=== PATIENT | male | born 1970 | race Caucasian/White ===

== ENCOUNTER 2016-08-30 23:16 | Emergency (ER) | payer OTHER, MEDICARE ==
[~2016-08-30] VITALS: Ht 188 cm; Wt 113.4 kg
[2016-08-30 23:16] VITALS: BP 146/84
[~2016-08-30 23:16] MED LIST: ASPI81TA13 PO; ATEN50TA2 PO; BACL10TA2 PO; DEPA500T2 PO; DESE1CRE TOP; DIVA500T9 PO; DIVA50TAEC PO; DULC10SU2 PR; FLOM5CAP PO; GABA-279 PO; HYDR25TAB PO; KEPP1000 PO; LAMI1TAB8 PO; LOVE1INJ SC; MAGN400T2 PO; MELO15TA4 PO; MICO2AER TOP; MICOPOW31 TOP; NYST-6 TOP; NYSTATIN OINT TOP; OMEPRAZOLE PO; POTA75TA PO; POTASSIUM CHLORIDE PO; QUET1TAB11 PO; SENO8.6T10 PO; SERO1TAB PO; TRAZ50TA4 PO; TYLE167L PO; ZOCO20TA PO; cephulac PO
[2016-08-30] MEDS ORDERED: HYDR10T PO (23:44)
[2016-08-30] MEDS ORDERED: SILD20TA11 PO (23:44)
[2016-08-30] MEDS ORDERED: PLAV75TA38 PO (23:44)
[2016-08-30] MEDS ORDERED: OMEP20CA3 PO (23:44)
[2016-08-30] MEDS ORDERED: ROPI0.5T PO (23:44)
[2016-08-30] MEDS ORDERED: TRAZ100T4 PO (23:44)
[2016-08-30] MEDS ORDERED: ATEN25TA PO (23:44)
[2016-08-30] MEDS ORDERED: MULTCAP11 PO (23:44)
== END 2016-08-31 03:24 | disposition left against medical advice (07) ==
LOC: M ED 08-31 00:52
DX: S09.92XA Unspecified injury of nose, initial encounter (principal); W22.09XA Striking against other stationary object, initial encounter; Z53.21 Procedure and treatment not carried out due to patient leaving prior to being seen by health care provider

== ENCOUNTER 2017-04-02 19:59 | Inpatient (IN) | payer OTHER, MEDICARE ==
[2017-04-02] MEDS: ONDANSETRON 4MG/2ML VIAL (J2405) IV (21:30)
[2017-04-02] MEDS: MORPHINE 4 MG/ML 1ML SYRINGE IV ×2 (22:01→22:35)
[2017-04-02 22:27] LABS: ANION GAP 7 MEQ/L (8-16); BLOOD UREA NITROGEN 8 MG/DL (7-18); CARBON DIOXIDE LEVEL 29 MEQ/L (21-32); CHLORIDE LEVEL 107 MEQ/L (98-107); CREATININE FOR GFR 0.71 MG/DL (0.70-1.30); GLOMERULAR FILTRATION RATE > 60.0 (>60); GLUCOSE, FASTING 89 MG/DL (70-105); POTASSIUM SERUM 3.7 MEQ/L (3.5-5.1); SODIUM LEVEL 143 MEQ/L (136-145)
[2017-04-02 22:28] LABS: BASO % 0.4 % (0.0-1.0); EOS % 0.2 % (0.0-3.0); HEMATOCRIT 46.3 % (42.0-52.0); HEMOGLOBIN 15.6 g/dl (14.0-18.0); IMMATURE GRANULOCYTE # 0.1 10^3/uL (0-0); IMMATURE GRANULOCYTE % 0.5 % (0-0); LYMPH # 0.9 10^3/uL (1.5-4.5); LYMPH % 7.9 % (24.0-44.0); MEAN CORPUSCULAR HEMOGLOBIN 29.1 pg (27.0-33.0); MEAN CORPUSCULAR HGB CONC 33.7 g/dl (32.0-36.5); MEAN CORPUSCULAR VOLUME 86.4 fl (80.0-96.0); MONO # 0.5 10^3/uL (0.0-0.8); MONO % 4.8 % (0.0-5.0); NEUTROPHILS # 9.4 10^3/uL (1.8-7.7); NEUTROPHILS % 86.2 % (36.0-66.0); PLATELET COUNT, AUTOMATED 176 10^3/uL (150-450); RED BLOOD COUNT 5.36 10^6/uL (4.30-6.10); RED CELL DISTRIBUTION WIDTH 12.7 % (11.5-14.5); WHITE BLOOD COUNT 10.9 10^3/uL (4.0-10.0)
[2017-04-02 22:41] LABS: PROTHROMBIN TIME 13.3 SECONDS (12.4-14.5)
[2017-04-02 22:42] LABS: PARTIAL THROMBOPLASTIN TIME 31.5 SECONDS (26.8-37.9)
[2017-04-02] MEDS ORDERED: ONDANSETRON 4MG/2ML VIAL (J2405) IV (23:15)
[2017-04-02] MEDS ORDERED: hydrOXYzine 10 MG TAB PO (23:30)
[2017-04-03] MEDS: MORPHINE 2 MG/ML 1ML SYRINGE IV (00:30)
[2017-04-03] MEDS: BACLOFEN 10 MG TAB PO ×5 (00:45→21:09)
[2017-04-03] MEDS: SIMVASTATIN 20 MG TAB PO (00:45)
[2017-04-03] MEDS: traZODone 100 MG TAB PO ×2 (00:45→21:09)
[2017-04-03] MEDS: NS 1,000 ML IV ×2 (00:45→10:46)
[2017-04-03] MEDS: rOPINIRole 0.25 MG TAB(REQUIP) PO ×2 (00:46→17:55)
[2017-04-03] MEDS: ATENOLOL 25 MG TAB PO ×3 (00:46→17:55)
[2017-04-03] MEDS: QUEtiapine FUMARATE 200 MG TAB PO ×2 (01:23→21:08)
[2017-04-03] MEDS: MORPHINE 4 MG/ML 1ML SYRINGE IV ×4 (06:20→19:43)
[2017-04-03 07:44] LABS: ANION GAP 7 MEQ/L (8-16); BLOOD UREA NITROGEN 8 MG/DL (7-18); CALCIUM LEVEL 8.7 MG/DL (8.5-10.1); CARBON DIOXIDE LEVEL 27 MEQ/L (21-32); CHLORIDE LEVEL 108 MEQ/L (98-107); CREATININE FOR GFR 0.66 MG/DL (0.70-1.30); GLOMERULAR FILTRATION RATE > 60.0 (>60); GLUCOSE, FASTING 85 MG/DL (70-105); POTASSIUM SERUM 3.7 MEQ/L (3.5-5.1); SODIUM LEVEL 142 MEQ/L (136-145)
[2017-04-03 07:48] LABS: BASO # 0.1 10^3/uL (0.0-0.2); BASO % 0.7 % (0.0-1.0); EOS # 0.1 10^3/uL (0.0-0.50); EOS % 1.2 % (0.0-3.0); HEMATOCRIT 42.9 % (42.0-52.0); HEMOGLOBIN 14.8 g/dl (14.0-18.0); IMMATURE GRANULOCYTE % 0.3 % (0-0); LYMPH # 1.3 10^3/uL (1.5-4.5); LYMPH % 18.6 % (24.0-44.0); MEAN CORPUSCULAR HEMOGLOBIN 29.4 pg (27.0-33.0); MEAN CORPUSCULAR HGB CONC 34.5 g/dl (32.0-36.5); MEAN CORPUSCULAR VOLUME 85.3 fl (80.0-96.0); MONO # 0.6 10^3/uL (0.0-0.8); MONO % 8.5 % (0.0-5.0); NEUTROPHILS # 4.8 10^3/uL (1.8-7.7); NEUTROPHILS % 70.7 % (36.0-66.0); PLATELET COUNT, AUTOMATED 159 10^3/uL (150-450); RED BLOOD COUNT 5.03 10^6/uL (4.30-6.10); RED CELL DISTRIBUTION WIDTH 12.7 % (11.5-14.5); WHITE BLOOD COUNT 6.7 10^3/uL (4.0-10.0)
[2017-04-03] MEDS ORDERED: traMADol 50 MG TAB PO ×2 (08:30)
[2017-04-03] MEDS ORDERED: ASPIRIN 81 MG CHEW TABLET PO (09:00)
[2017-04-03] MEDS: CLOPIDOGREL 75 MG TAB PO (09:41)
[2017-04-03] MEDS: MIRALAX *UNIT DOSE* 17GM PACKET PO (09:41)
[2017-04-03] MEDS: OMEPRAZOLE 20 MG CAP PO (09:48)
[2017-04-03] MEDS: levETIRAcetam 250MG TABLET (KEPPRA) PO ×2 (09:49→17:52)
[2017-04-03] MEDS: MOM 30ML SUSPENSION UDC PO ×2 (09:49→10:52)
[2017-04-03] MEDS: QUEtiapine FUMARATE 100 MG TAB PO (09:50)
[2017-04-03] MEDS: MULTIVITAMINS/MINERALS THERAP 1 TAB PO (09:50)
[2017-04-03] MEDS: SENOKOT S TAB PO ×2 (09:50→21:00)
[2017-04-03] MEDS: MAGNESIUM OXIDE 400 MG TAB (MAG-OX) PO ×2 (09:50→17:52)
[2017-04-03] MEDS: HEPARIN SOD (PORCINE) 5000 UNITS/ML VIAL SQ ×3 (09:51→21:08)
[2017-04-03] MEDS: OYSTER SHELL CALCIUM 500 MG TAB PO ×2 (10:46→17:52)
[2017-04-03] MEDS: ACETAMINOPHEN TAB 650MG DOSE (2X325MG) PO (17:52)
[2017-04-03] MEDS: POTASSIUM CHLORIDE 10 MEQ SR TABLET PO (17:52)
[2017-04-03] MEDS ORDERED: levETIRAcetam 250MG TABLET (KEPPRA) PO (21:00)
[2017-04-03] MEDS: LORATADINE 10 MG TAB PO (21:08)
[2017-04-03] MEDS: SIMVASTATIN 40 MG TAB PO (21:08)
[2017-04-04] MEDS: MORPHINE 4 MG/ML 1ML SYRINGE IV ×4 (03:12→23:53)
[2017-04-04] MEDS: ACETAMINOPHEN TAB 650MG DOSE (2X325MG) PO (05:40)
[2017-04-04] MEDS: oxyCODONE 5MG TAB PO (05:41)
[2017-04-04] MEDS: HEPARIN SOD (PORCINE) 5000 UNITS/ML VIAL SQ ×3 (05:42→21:42)
[2017-04-04] MEDS: rOPINIRole 0.25 MG TAB(REQUIP) PO ×2 (09:00→17:46)
[2017-04-04] MEDS: BACLOFEN 10 MG TAB PO ×4 (09:00→21:42)
[2017-04-04] MEDS: levETIRAcetam 250MG TABLET (KEPPRA) PO ×2 (09:01→17:44)
[2017-04-04] MEDS: MAGNESIUM OXIDE 400 MG TAB (MAG-OX) PO ×2 (09:02→17:46)
[2017-04-04] MEDS: OMEPRAZOLE 20 MG CAP PO (09:03)
[2017-04-04] MEDS: SENOKOT S TAB PO ×2 (09:03→21:42)
[2017-04-04] MEDS: MULTIVITAMINS/MINERALS THERAP 1 TAB PO (09:03)
[2017-04-04] MEDS: ATENOLOL 25 MG TAB PO ×2 (09:03→17:45)
[2017-04-04] MEDS: OYSTER SHELL CALCIUM 500 MG TAB PO ×2 (09:05→17:45)
[2017-04-04] MEDS: POTASSIUM CHLORIDE 10 MEQ SR TABLET PO ×2 (09:05→17:45)
[2017-04-04] MEDS: MORPHINE 15 MG SA TAB PO ×2 (09:05→21:41)
[2017-04-04] MEDS: QUEtiapine FUMARATE 100 MG TAB PO (09:07)
[2017-04-04] MEDS: MIRALAX *UNIT DOSE* 17GM PACKET PO (09:08)
[2017-04-04] MEDS: MOM 30ML SUSPENSION UDC PO (09:08)
[2017-04-04] MEDS: SIMVASTATIN 40 MG TAB PO (21:42)
[2017-04-04] MEDS: QUEtiapine FUMARATE 200 MG TAB PO (21:42)
[2017-04-04] MEDS: traZODone 100 MG TAB PO (21:42)
[2017-04-05] MEDS: MORPHINE 4 MG/ML 1ML SYRINGE IV ×4 (05:20→21:03)
[2017-04-05] MEDS: HEPARIN SOD (PORCINE) 5000 UNITS/ML VIAL SQ ×3 (05:20→19:59)
[2017-04-05 07:17] LABS: HEMATOCRIT 45.4 % (42.0-52.0); HEMOGLOBIN 15.5 g/dl (14.0-18.0); MEAN CORPUSCULAR HEMOGLOBIN 29.3 pg (27.0-33.0); MEAN CORPUSCULAR HGB CONC 34.1 g/dl (32.0-36.5); MEAN CORPUSCULAR VOLUME 85.8 fl (80.0-96.0); PLATELET COUNT, AUTOMATED 152 10^3/uL (150-450); RED BLOOD COUNT 5.29 10^6/uL (4.30-6.10); WHITE BLOOD COUNT 7.1 10^3/uL (4.0-10.0)
[2017-04-05 07:36] LABS: ANION GAP 9 MEQ/L (8-16); BLOOD UREA NITROGEN 9 MG/DL (7-18); CALCIUM LEVEL 8.8 MG/DL (8.5-10.1); CARBON DIOXIDE LEVEL 22 MEQ/L (21-32); CHLORIDE LEVEL 108 MEQ/L (98-107); CREATININE FOR GFR 0.66 MG/DL (0.70-1.30); GLOMERULAR FILTRATION RATE > 60.0 (>60); GLUCOSE, FASTING 92 MG/DL (70-105); POTASSIUM SERUM 3.8 MEQ/L (3.5-5.1); SODIUM LEVEL 139 MEQ/L (136-145)
[2017-04-05] MEDS: MOM 30ML SUSPENSION UDC PO (08:10)
[2017-04-05] MEDS: MIRALAX *UNIT DOSE* 17GM PACKET PO (08:12)
[2017-04-05] MEDS: MAGNESIUM OXIDE 400 MG TAB (MAG-OX) PO ×2 (08:12→17:18)
[2017-04-05] MEDS: BACLOFEN 10 MG TAB PO ×4 (08:12→19:56)
[2017-04-05] MEDS: OMEPRAZOLE 20 MG CAP PO (08:12)
[2017-04-05] MEDS: MULTIVITAMINS/MINERALS THERAP 1 TAB PO (08:12)
[2017-04-05] MEDS: SENOKOT S TAB PO ×2 (08:12→19:55)
[2017-04-05] MEDS: POTASSIUM CHLORIDE 10 MEQ SR TABLET PO ×2 (08:13→17:17)
[2017-04-05] MEDS: levETIRAcetam 250MG TABLET (KEPPRA) PO ×2 (08:13→17:18)
[2017-04-05] MEDS: QUEtiapine FUMARATE 100 MG TAB PO ×2 (08:13→19:56)
[2017-04-05] MEDS: rOPINIRole 0.25 MG TAB(REQUIP) PO ×2 (08:14→17:17)
[2017-04-05] MEDS: ATENOLOL 25 MG TAB PO ×2 (08:14→17:21)
[2017-04-05] MEDS: MORPHINE 15 MG SA TAB PO ×2 (08:14→19:55)
[2017-04-05] MEDS: OYSTER SHELL CALCIUM 500 MG TAB PO ×2 (12:24→17:17)
[2017-04-05] MEDS: traZODone 100 MG TAB PO (19:55)
[2017-04-05] MEDS: SIMVASTATIN 40 MG TAB PO (19:55)
[2017-04-05] MEDS: QUEtiapine FUMARATE 200 MG TAB PO (19:59)
[2017-04-06] MEDS: MORPHINE 4 MG/ML 1ML SYRINGE IV ×5 (05:38→23:05)
[2017-04-06] MEDS: HEPARIN SOD (PORCINE) 5000 UNITS/ML VIAL SQ ×3 (05:39→20:37)
[2017-04-06 05:57] LABS: HEMATOCRIT 45.5 % (42.0-52.0); HEMOGLOBIN 15.5 g/dl (14.0-18.0); MEAN CORPUSCULAR HEMOGLOBIN 29.2 pg (27.0-33.0); MEAN CORPUSCULAR HGB CONC 34.1 g/dl (32.0-36.5); MEAN CORPUSCULAR VOLUME 85.7 fl (80.0-96.0); PLATELET COUNT, AUTOMATED 156 10^3/uL (150-450); RED BLOOD COUNT 5.31 10^6/uL (4.30-6.10); RED CELL DISTRIBUTION WIDTH 12.6 % (11.5-14.5); WHITE BLOOD COUNT 6.5 10^3/uL (4.0-10.0)
[2017-04-06 06:12] LABS: ANION GAP 6 MEQ/L (8-16); BLOOD UREA NITROGEN 12 MG/DL (7-18); CALCIUM LEVEL 8.8 MG/DL (8.5-10.1); CARBON DIOXIDE LEVEL 26 MEQ/L (21-32); CHLORIDE LEVEL 107 MEQ/L (98-107); CREATININE FOR GFR 0.66 MG/DL (0.70-1.30); GLOMERULAR FILTRATION RATE > 60.0 (>60); GLUCOSE, FASTING 100 MG/DL (70-105); POTASSIUM SERUM 3.8 MEQ/L (3.5-5.1); SODIUM LEVEL 139 MEQ/L (136-145)
[2017-04-06] MEDS: MORPHINE 15 MG SA TAB PO ×2 (08:35→20:38)
[2017-04-06] MEDS: QUEtiapine FUMARATE 100 MG TAB PO (09:00)
[2017-04-06] MEDS ORDERED: VITAMIN D 1,000 INTERNATIONAL UNITS TABLET PO (09:00)
[2017-04-06] MEDS: SENOKOT S TAB PO ×2 (10:32→20:38)
[2017-04-06] MEDS: MULTIVITAMINS/MINERALS THERAP 1 TAB PO (10:32)
[2017-04-06] MEDS: ATENOLOL 25 MG TAB PO ×2 (10:33→17:25)
[2017-04-06] MEDS: POTASSIUM CHLORIDE 10 MEQ SR TABLET PO ×2 (10:33→17:26)
[2017-04-06] MEDS: BACLOFEN 10 MG TAB PO ×4 (10:33→20:38)
[2017-04-06] MEDS: MAGNESIUM OXIDE 400 MG TAB (MAG-OX) PO ×2 (10:34→17:26)
[2017-04-06] MEDS: OYSTER SHELL CALCIUM 500 MG TAB PO ×2 (10:35→17:25)
[2017-04-06] MEDS: OMEPRAZOLE 20 MG CAP PO (10:36)
[2017-04-06] MEDS: VITAMIN D 50,000 UNITS CAPSULE (ERGOCALCIFEROL 1.25MG) PO (10:36)
[2017-04-06] MEDS: rOPINIRole 0.25 MG TAB(REQUIP) PO ×2 (10:36→17:25)
[2017-04-06] MEDS: levETIRAcetam 250MG TABLET (KEPPRA) PO ×2 (10:37→17:25)
[2017-04-06] MEDS: MIRALAX *UNIT DOSE* 17GM PACKET PO (10:38)
[2017-04-06] MEDS: MOM 30ML SUSPENSION UDC PO (10:39)
[2017-04-06] MEDS: QUEtiapine FUMARATE 200 MG TAB PO (20:37)
[2017-04-06] MEDS: traZODone 100 MG TAB PO (20:38)
[2017-04-06] MEDS: SIMVASTATIN 40 MG TAB PO (20:39)
[2017-04-07] MEDS: MORPHINE 4 MG/ML 1ML SYRINGE IV ×5 (02:03→23:07)
[2017-04-07 06:22] LABS: HEMATOCRIT 46.9 % (42.0-52.0); HEMOGLOBIN 16.2 g/dl (14.0-18.0); MEAN CORPUSCULAR HEMOGLOBIN 29.1 pg (27.0-33.0); MEAN CORPUSCULAR HGB CONC 34.5 g/dl (32.0-36.5); MEAN CORPUSCULAR VOLUME 84.2 fl (80.0-96.0); PLATELET COUNT, AUTOMATED 185 10^3/uL (150-450); RED BLOOD COUNT 5.57 10^6/uL (4.30-6.10); RED CELL DISTRIBUTION WIDTH 12.3 % (11.5-14.5); WHITE BLOOD COUNT 6.3 10^3/uL (4.0-10.0)
[2017-04-07 06:51] LABS: ANION GAP 8 MEQ/L (8-16); BLOOD UREA NITROGEN 14 MG/DL (7-18); CALCIUM LEVEL 9.3 MG/DL (8.5-10.1); CARBON DIOXIDE LEVEL 23 MEQ/L (21-32); CHLORIDE LEVEL 107 MEQ/L (98-107); CREATININE FOR GFR 0.61 MG/DL (0.70-1.30); GLOMERULAR FILTRATION RATE > 60.0 (>60); GLUCOSE, FASTING 91 MG/DL (70-105); POTASSIUM SERUM 4.5 MEQ/L (3.5-5.1); SODIUM LEVEL 138 MEQ/L (136-145)
[2017-04-07] MEDS ORDERED: ceFAZolin 2 GM/D5W 50 ML IV BAG (J0690 PER 500MG) As Ordered (08:01)
[2017-04-07] MEDS: levETIRAcetam 250MG TABLET (KEPPRA) PO ×2 (08:29→17:36)
[2017-04-07] MEDS ORDERED: MIDAZOLAM INJ 2 MG/2 ML VIAL (J2250) As Ordered (08:33)
[2017-04-07] MEDS ORDERED: fentaNYL 250 MCG/5 ML INJECTION (J3010) As Ordered (08:34)
[2017-04-07] MEDS ORDERED: PROPOFOL 200 MG/20 ML VIAL As Ordered (08:39)
[2017-04-07] MEDS ORDERED: ROCURONIUM BROMIDE 50 MG/5 ML VIAL As Ordered (08:40)
[2017-04-07] MEDS ORDERED: LIDOCAINE 2% INJ 100 MG/5 ML SDV (FOR ANES.) As Ordered (08:40)
[2017-04-07] MEDS: OYSTER SHELL CALCIUM 500 MG TAB PO ×2 (09:00→17:37)
[2017-04-07] MEDS: MAGNESIUM OXIDE 400 MG TAB (MAG-OX) PO ×2 (09:00→17:38)
[2017-04-07] MEDS: MORPHINE 15 MG SA TAB PO ×2 (09:00→20:14)
[2017-04-07] MEDS: POTASSIUM CHLORIDE 10 MEQ SR TABLET PO ×2 (09:00→17:37)
[2017-04-07] MEDS: ATENOLOL 25 MG TAB PO ×2 (09:00→17:37)
[2017-04-07] MEDS: BACLOFEN 10 MG TAB PO ×4 (09:00→20:13)
[2017-04-07] MEDS: rOPINIRole 0.25 MG TAB(REQUIP) PO ×2 (09:00→17:36)
[2017-04-07] MEDS ORDERED: ONDANSETRON 4MG/2ML VIAL (J2405) As Ordered ×2 (09:41→11:25)
[2017-04-07] MEDS ORDERED: NEOSTIGMINE 10 MG/10 ML VIAL (J2710) As Ordered (09:41)
[2017-04-07] MEDS ORDERED: GLYCOPYRROLATE INJ 0.2 MG/ML 2 ML VIAL As Ordered (09:41)
[2017-04-07] MEDS: TRANEXAMIC ACID 100 MG/ML 10ML VIAL As Ordered (09:46)
[2017-04-07] MEDS: EPINEPHrine INJ 1 MG/ML 1ML AMP As Ordered (09:46)
[2017-04-07] MEDS: ceFAZolin 1GM INJ (J0690 PER 500MG) As Ordered (09:46)
[2017-04-07] MEDS ORDERED: MORPHINE 10 MG/ML 1ML VIAL As Ordered (09:48)
[2017-04-07] MEDS: ONDANSETRON 4 MG TAB (S0181) PO (11:30)
[2017-04-07] MEDS ORDERED: fentaNYL 100 MCG/2 ML INJECTION (J3010) IV (11:45)
[2017-04-07] MEDS ORDERED: ONDANSETRON 4MG/2ML VIAL (J2405) IV (11:45)
[2017-04-07] MEDS ORDERED: PERCOCET 5MG/325MG TAB PO (11:45)
[2017-04-07] MEDS: LR 1,000 ML IV (11:45)
[2017-04-07] MEDS: QUEtiapine FUMARATE 100 MG TAB PO (13:39)
[2017-04-07] MEDS: OMEPRAZOLE 20 MG CAP PO (13:39)
[2017-04-07] MEDS: MIRALAX *UNIT DOSE* 17GM PACKET PO (13:39)
[2017-04-07] MEDS: MOM 30ML SUSPENSION UDC PO (13:39)
[2017-04-07] MEDS: VANCOMYCIN HCL 1,000 MG, VIAL MATE ADAPTER 1 EACH in D5W 250 ML IV (13:40)
[2017-04-07] MEDS: MULTIVITAMINS/MINERALS THERAP 1 TAB PO (13:40)
[2017-04-07] MEDS: SENOKOT S TAB PO ×2 (13:40→20:13)
[2017-04-07] MEDS: traZODone 100 MG TAB PO (20:13)
[2017-04-07] MEDS: SIMVASTATIN 40 MG TAB PO (20:13)
[2017-04-07] MEDS: QUEtiapine FUMARATE 200 MG TAB PO (20:13)
[2017-04-08] MEDS: VANCOMYCIN HCL 1,000 MG, VIAL MATE ADAPTER 1 EACH in D5W 250 ML IV (00:41)
[2017-04-08] MEDS: MORPHINE 4 MG/ML 1ML SYRINGE IV ×4 (03:08→20:26)
[2017-04-08 07:18] LABS: HEMATOCRIT 43.7 % (42.0-52.0); HEMOGLOBIN 15.1 g/dl (14.0-18.0); MEAN CORPUSCULAR HEMOGLOBIN 29.5 pg (27.0-33.0); MEAN CORPUSCULAR HGB CONC 34.6 g/dl (32.0-36.5); MEAN CORPUSCULAR VOLUME 85.4 fl (80.0-96.0); PLATELET COUNT, AUTOMATED 177 10^3/uL (150-450); RED BLOOD COUNT 5.12 10^6/uL (4.30-6.10); RED CELL DISTRIBUTION WIDTH 11.9 % (11.5-14.5); WHITE BLOOD COUNT 11.5 10^3/uL (4.0-10.0)
[2017-04-08 07:34] LABS: ANION GAP 7 MEQ/L (8-16); BLOOD UREA NITROGEN 12 MG/DL (7-18); CALCIUM LEVEL 8.7 MG/DL (8.5-10.1); CARBON DIOXIDE LEVEL 26 MEQ/L (21-32); CHLORIDE LEVEL 101 MEQ/L (98-107); CREATININE FOR GFR 0.69 MG/DL (0.70-1.30); GLOMERULAR FILTRATION RATE > 60.0 (>60); GLUCOSE, FASTING 125 MG/DL (70-105); POTASSIUM SERUM 4.2 MEQ/L (3.5-5.1); SODIUM LEVEL 134 MEQ/L (136-145)
[2017-04-08] MEDS: MORPHINE 15 MG SA TAB PO ×2 (08:54→21:42)
[2017-04-08] MEDS: MOM 30ML SUSPENSION UDC PO (09:00)
[2017-04-08] MEDS: SENOKOT S TAB PO ×2 (09:00→21:00)
[2017-04-08] MEDS: rOPINIRole 0.25 MG TAB(REQUIP) PO ×2 (09:26→16:18)
[2017-04-08] MEDS: MULTIVITAMINS/MINERALS THERAP 1 TAB PO (09:26)
[2017-04-08] MEDS: levETIRAcetam 250MG TABLET (KEPPRA) PO ×2 (09:27→16:18)
[2017-04-08] MEDS: QUEtiapine FUMARATE 100 MG TAB PO (09:27)
[2017-04-08] MEDS: OYSTER SHELL CALCIUM 500 MG TAB PO ×2 (09:27→16:18)
[2017-04-08] MEDS: MAGNESIUM OXIDE 400 MG TAB (MAG-OX) PO ×2 (09:27→16:18)
[2017-04-08] MEDS: ATENOLOL 25 MG TAB PO ×2 (09:28→16:19)
[2017-04-08] MEDS: BACLOFEN 10 MG TAB PO ×4 (09:28→21:43)
[2017-04-08] MEDS: OMEPRAZOLE 20 MG CAP PO (09:28)
[2017-04-08] MEDS: POTASSIUM CHLORIDE 10 MEQ SR TABLET PO ×2 (09:29→16:18)
[2017-04-08] MEDS: ASPIRIN 81 MG ENTERIC TAB PO (12:25)
[2017-04-08] MEDS: CLOPIDOGREL 75 MG TAB PO (12:25)
[2017-04-08] MEDS ORDERED: SLF 3 ML SYR IV (14:15)
[2017-04-08] MEDS: SLF 3 ML SYR IV ×2 (14:23→21:46)
[2017-04-08] MEDS: SIMVASTATIN 40 MG TAB PO (21:41)
[2017-04-08] MEDS: traZODone 100 MG TAB PO (21:41)
[2017-04-08] MEDS: DOXYCYCLINE HYCLATE 100 MG TAB PO (21:42)
[2017-04-08] MEDS: QUEtiapine FUMARATE 200 MG TAB PO (21:43)
[2017-04-09] MEDS: MORPHINE 4 MG/ML 1ML SYRINGE IV ×3 (06:13→21:17)
[2017-04-09] MEDS: SLF 3 ML SYR IV ×3 (06:14→21:17)
[2017-04-09 07:38] LABS: HEMATOCRIT 40.6 % (42.0-52.0); HEMOGLOBIN 14.1 g/dl (14.0-18.0); MEAN CORPUSCULAR HEMOGLOBIN 29.7 pg (27.0-33.0); MEAN CORPUSCULAR HGB CONC 34.7 g/dl (32.0-36.5); MEAN CORPUSCULAR VOLUME 85.7 fl (80.0-96.0); PLATELET COUNT, AUTOMATED 188 10^3/uL (150-450); RED BLOOD COUNT 4.74 10^6/uL (4.30-6.10); RED CELL DISTRIBUTION WIDTH 12.1 % (11.5-14.5); WHITE BLOOD COUNT 10.4 10^3/uL (4.0-10.0)
[2017-04-09 07:58] LABS: ANION GAP 8 MEQ/L (8-16); BLOOD UREA NITROGEN 13 MG/DL (7-18); CARBON DIOXIDE LEVEL 26 MEQ/L (21-32); CHLORIDE LEVEL 102 MEQ/L (98-107); CREATININE FOR GFR 0.57 MG/DL (0.70-1.30); GLOMERULAR FILTRATION RATE > 60.0 (>60); GLUCOSE, FASTING 102 MG/DL (70-105); POTASSIUM SERUM 3.8 MEQ/L (3.5-5.1); SODIUM LEVEL 136 MEQ/L (136-145)
[2017-04-09] MEDS: rOPINIRole 0.25 MG TAB(REQUIP) PO ×2 (08:18→16:26)
[2017-04-09] MEDS: levETIRAcetam 250MG TABLET (KEPPRA) PO ×2 (08:18→16:26)
[2017-04-09] MEDS: CLOPIDOGREL 75 MG TAB PO (08:18)
[2017-04-09] MEDS: MULTIVITAMINS/MINERALS THERAP 1 TAB PO (08:18)
[2017-04-09] MEDS: OMEPRAZOLE 20 MG CAP PO (08:19)
[2017-04-09] MEDS: BACLOFEN 10 MG TAB PO ×4 (08:19→22:02)
[2017-04-09] MEDS: ATENOLOL 25 MG TAB PO ×2 (08:19→16:25)
[2017-04-09] MEDS: POTASSIUM CHLORIDE 10 MEQ SR TABLET PO ×2 (08:19→16:26)
[2017-04-09] MEDS: DOXYCYCLINE HYCLATE 100 MG TAB PO ×2 (08:20→22:04)
[2017-04-09] MEDS: MAGNESIUM OXIDE 400 MG TAB (MAG-OX) PO ×2 (08:20→16:26)
[2017-04-09] MEDS: OYSTER SHELL CALCIUM 500 MG TAB PO ×2 (08:20→16:27)
[2017-04-09] MEDS: MORPHINE 15 MG SA TAB PO ×2 (08:20→22:05)
[2017-04-09] MEDS: ASPIRIN 81 MG ENTERIC TAB PO (08:21)
[2017-04-09] MEDS: SENOKOT S TAB PO ×2 (08:21→21:00)
[2017-04-09] MEDS: MOM 30ML SUSPENSION UDC PO (08:21)
[2017-04-09] MEDS: QUEtiapine FUMARATE 100 MG TAB PO ×2 (08:25→22:03)
[2017-04-09] MEDS: SIMVASTATIN 40 MG TAB PO (22:03)
[2017-04-09] MEDS: traZODone 100 MG TAB PO (22:03)
[2017-04-09] MEDS: QUEtiapine FUMARATE 200 MG TAB PO (22:04)
[2017-04-10] MEDS: MORPHINE 4 MG/ML 1ML SYRINGE IV ×4 (06:46→20:43)
[2017-04-10] MEDS: SLF 3 ML SYR IV ×3 (06:46→20:18)
[2017-04-10 07:06] LABS: HEMATOCRIT 38.5 % (42.0-52.0); HEMOGLOBIN 13.2 g/dl (14.0-18.0); MEAN CORPUSCULAR HEMOGLOBIN 29.2 pg (27.0-33.0); MEAN CORPUSCULAR HGB CONC 34.3 g/dl (32.0-36.5); MEAN CORPUSCULAR VOLUME 85.2 fl (80.0-96.0); PLATELET COUNT, AUTOMATED 214 10^3/uL (150-450); RED BLOOD COUNT 4.52 10^6/uL (4.30-6.10); RED CELL DISTRIBUTION WIDTH 12.2 % (11.5-14.5); WHITE BLOOD COUNT 8.5 10^3/uL (4.0-10.0)
[2017-04-10 07:29] LABS: ANION GAP 8 MEQ/L (8-16); BLOOD UREA NITROGEN 13 MG/DL (7-18); CALCIUM LEVEL 8.6 MG/DL (8.5-10.1); CARBON DIOXIDE LEVEL 26 MEQ/L (21-32); CHLORIDE LEVEL 104 MEQ/L (98-107); CREATININE FOR GFR 0.52 MG/DL (0.70-1.30); GLOMERULAR FILTRATION RATE > 60.0 (>60); GLUCOSE, FASTING 102 MG/DL (70-105); POTASSIUM SERUM 3.6 MEQ/L (3.5-5.1); SODIUM LEVEL 138 MEQ/L (136-145)
[2017-04-10] MEDS: SENOKOT S TAB PO ×2 (07:54→20:18)
[2017-04-10] MEDS: MOM 30ML SUSPENSION UDC PO (07:54)
[2017-04-10] MEDS: rOPINIRole 0.25 MG TAB(REQUIP) PO ×2 (10:01→17:56)
[2017-04-10] MEDS: VITAMIN D 50,000 UNITS CAPSULE (ERGOCALCIFEROL 1.25MG) PO (10:01)
[2017-04-10] MEDS: OMEPRAZOLE 20 MG CAP PO (10:01)
[2017-04-10] MEDS: OYSTER SHELL CALCIUM 500 MG TAB PO ×2 (10:02→17:56)
[2017-04-10] MEDS: levETIRAcetam 250MG TABLET (KEPPRA) PO ×2 (10:02→17:56)
[2017-04-10] MEDS: MULTIVITAMINS/MINERALS THERAP 1 TAB PO (10:02)
[2017-04-10] MEDS: DOXYCYCLINE HYCLATE 100 MG TAB PO ×2 (10:02→20:17)
[2017-04-10] MEDS: MAGNESIUM OXIDE 400 MG TAB (MAG-OX) PO ×2 (10:02→17:55)
[2017-04-10] MEDS: BACLOFEN 10 MG TAB PO ×4 (10:02→20:17)
[2017-04-10] MEDS: CLOPIDOGREL 75 MG TAB PO (10:02)
[2017-04-10] MEDS: ASPIRIN 81 MG ENTERIC TAB PO (10:03)
[2017-04-10] MEDS: POTASSIUM CHLORIDE 10 MEQ SR TABLET PO ×2 (10:03→17:57)
[2017-04-10] MEDS: MORPHINE 15 MG SA TAB PO ×2 (10:03→20:18)
[2017-04-10] MEDS: ATENOLOL 25 MG TAB PO ×2 (10:06→17:56)
[2017-04-10] MEDS: SIMVASTATIN 40 MG TAB PO (20:17)
[2017-04-10] MEDS: QUEtiapine FUMARATE 200 MG TAB PO (22:05)
[2017-04-10] MEDS: traZODone 100 MG TAB PO (22:05)
[2017-04-11] MEDS: SLF 3 ML SYR IV ×3 (05:47→22:18)
[2017-04-11] MEDS: MORPHINE 4 MG/ML 1ML SYRINGE IV ×3 (06:43→19:49)
[2017-04-11 06:58] LABS: HEMATOCRIT 40.1 % (42.0-52.0); HEMOGLOBIN 13.7 g/dl (14.0-18.0); MEAN CORPUSCULAR HEMOGLOBIN 29.5 pg (27.0-33.0); MEAN CORPUSCULAR HGB CONC 34.2 g/dl (32.0-36.5); MEAN CORPUSCULAR VOLUME 86.4 fl (80.0-96.0); PLATELET COUNT, AUTOMATED 246 10^3/uL (150-450); RED BLOOD COUNT 4.64 10^6/uL (4.30-6.10); WHITE BLOOD COUNT 7.1 10^3/uL (4.0-10.0)
[2017-04-11 07:21] LABS: ANION GAP 8 MEQ/L (8-16); BLOOD UREA NITROGEN 14 MG/DL (7-18); CALCIUM LEVEL 8.9 MG/DL (8.5-10.1); CARBON DIOXIDE LEVEL 27 MEQ/L (21-32); CHLORIDE LEVEL 103 MEQ/L (98-107); CREATININE FOR GFR 0.59 MG/DL (0.70-1.30); GLOMERULAR FILTRATION RATE > 60.0 (>60); GLUCOSE, FASTING 91 MG/DL (70-105); POTASSIUM SERUM 3.7 MEQ/L (3.5-5.1); SODIUM LEVEL 138 MEQ/L (136-145)
[2017-04-11] MEDS: MOM 30ML SUSPENSION UDC PO (09:00)
[2017-04-11] MEDS: SENOKOT S TAB PO ×2 (09:00→22:18)
[2017-04-11] MEDS: DOXYCYCLINE HYCLATE 100 MG TAB PO ×2 (09:10→22:17)
[2017-04-11] MEDS: ASPIRIN 81 MG ENTERIC TAB PO (09:10)
[2017-04-11] MEDS: rOPINIRole 0.25 MG TAB(REQUIP) PO ×2 (09:10→17:32)
[2017-04-11] MEDS: levETIRAcetam 250MG TABLET (KEPPRA) PO ×2 (09:10→17:32)
[2017-04-11] MEDS: POTASSIUM CHLORIDE 10 MEQ SR TABLET PO ×2 (09:11→17:32)
[2017-04-11] MEDS: OMEPRAZOLE 20 MG CAP PO (09:11)
[2017-04-11] MEDS: MAGNESIUM OXIDE 400 MG TAB (MAG-OX) PO ×2 (09:11→17:34)
[2017-04-11] MEDS: CLOPIDOGREL 75 MG TAB PO (09:11)
[2017-04-11] MEDS: BACLOFEN 10 MG TAB PO ×4 (09:11→22:17)
[2017-04-11] MEDS: MORPHINE 15 MG SA TAB PO ×2 (09:12→22:17)
[2017-04-11] MEDS: MULTIVITAMINS/MINERALS THERAP 1 TAB PO (09:12)
[2017-04-11] MEDS: QUEtiapine FUMARATE 100 MG TAB PO (09:12)
[2017-04-11] MEDS: OYSTER SHELL CALCIUM 500 MG TAB PO ×2 (09:13→17:32)
[2017-04-11] MEDS: ATENOLOL 25 MG TAB PO ×2 (09:15→17:34)
[2017-04-11] MEDS: SIMVASTATIN 40 MG TAB PO (22:17)
[2017-04-11] MEDS: QUEtiapine FUMARATE 200 MG TAB PO (22:17)
[2017-04-11] MEDS: traZODone 100 MG TAB PO (22:17)
[2017-04-12] MEDS: SLF 3 ML SYR IV ×3 (05:36→21:39)
[2017-04-12 06:45] LABS: HEMATOCRIT 38.2 % (42.0-52.0); HEMOGLOBIN 13.2 g/dl (14.0-18.0); MEAN CORPUSCULAR HEMOGLOBIN 29.5 pg (27.0-33.0); MEAN CORPUSCULAR HGB CONC 34.6 g/dl (32.0-36.5); MEAN CORPUSCULAR VOLUME 85.3 fl (80.0-96.0); PLATELET COUNT, AUTOMATED 290 10^3/uL (150-450); RED BLOOD COUNT 4.48 10^6/uL (4.30-6.10); WHITE BLOOD COUNT 7.5 10^3/uL (4.0-10.0)
[2017-04-12 07:06] LABS: ANION GAP 8 MEQ/L (8-16); BLOOD UREA NITROGEN 12 MG/DL (7-18); CALCIUM LEVEL 8.9 MG/DL (8.5-10.1); CARBON DIOXIDE LEVEL 26 MEQ/L (21-32); CHLORIDE LEVEL 105 MEQ/L (98-107); CREATININE FOR GFR 0.59 MG/DL (0.70-1.30); GLOMERULAR FILTRATION RATE > 60.0 (>60); GLUCOSE, FASTING 95 MG/DL (70-105); POTASSIUM SERUM 3.8 MEQ/L (3.5-5.1); SODIUM LEVEL 139 MEQ/L (136-145)
[2017-04-12] MEDS: MOM 30ML SUSPENSION UDC PO (09:00)
[2017-04-12] MEDS: SENOKOT S TAB PO ×2 (09:00→21:38)
[2017-04-12] MEDS: MAGNESIUM OXIDE 400 MG TAB (MAG-OX) PO ×2 (09:55→17:29)
[2017-04-12] MEDS: OMEPRAZOLE 20 MG CAP PO (09:56)
[2017-04-12] MEDS: POTASSIUM CHLORIDE 10 MEQ SR TABLET PO ×2 (09:56→17:29)
[2017-04-12] MEDS: levETIRAcetam 250MG TABLET (KEPPRA) PO ×2 (09:56→17:29)
[2017-04-12] MEDS: BACLOFEN 10 MG TAB PO ×4 (09:56→21:38)
[2017-04-12] MEDS: DOXYCYCLINE HYCLATE 100 MG TAB PO ×2 (09:56→21:38)
[2017-04-12] MEDS: ATENOLOL 25 MG TAB PO ×2 (10:00→17:29)
[2017-04-12] MEDS: rOPINIRole 0.25 MG TAB(REQUIP) PO ×2 (10:00→17:28)
[2017-04-12] MEDS: MULTIVITAMINS/MINERALS THERAP 1 TAB PO (10:01)
[2017-04-12] MEDS: CLOPIDOGREL 75 MG TAB PO (10:01)
[2017-04-12] MEDS: QUEtiapine FUMARATE 100 MG TAB PO (10:01)
[2017-04-12] MEDS: ASPIRIN 81 MG ENTERIC TAB PO (10:01)
[2017-04-12] MEDS: OYSTER SHELL CALCIUM 500 MG TAB PO ×2 (10:01→17:29)
[2017-04-12] MEDS: MORPHINE 15 MG SA TAB PO ×2 (10:01→21:39)
[2017-04-12] MEDS: MORPHINE 4 MG/ML 1ML SYRINGE IV ×2 (10:09→17:30)
[2017-04-12] MEDS: traZODone 100 MG TAB PO (21:38)
[2017-04-12] MEDS: SIMVASTATIN 40 MG TAB PO (21:38)
[2017-04-12] MEDS: QUEtiapine FUMARATE 200 MG TAB PO (21:38)
[2017-04-12] MEDS: MORPHINE 2 MG/ML 1ML SYRINGE IV (22:38)
[2017-04-13] MEDS: MORPHINE 2 MG/ML 1ML SYRINGE IV (05:57)
[2017-04-13] MEDS: SLF 3 ML SYR IV ×3 (06:00→22:00)
[2017-04-13 06:48] LABS: HEMATOCRIT 38.5 % (42.0-52.0); MEAN CORPUSCULAR HGB CONC 33.8 g/dl (32.0-36.5); MEAN CORPUSCULAR VOLUME 85.9 fl (80.0-96.0); PLATELET COUNT, AUTOMATED 308 10^3/uL (150-450); RED BLOOD COUNT 4.48 10^6/uL (4.30-6.10); RED CELL DISTRIBUTION WIDTH 11.9 % (11.5-14.5); WHITE BLOOD COUNT 7.1 10^3/uL (4.0-10.0)
[2017-04-13 07:04] LABS: ANION GAP 6 MEQ/L (8-16); BLOOD UREA NITROGEN 12 MG/DL (7-18); CALCIUM LEVEL 8.8 MG/DL (8.5-10.1); CARBON DIOXIDE LEVEL 27 MEQ/L (21-32); CHLORIDE LEVEL 107 MEQ/L (98-107); CREATININE FOR GFR 0.58 MG/DL (0.70-1.30); GLOMERULAR FILTRATION RATE > 60.0 (>60); GLUCOSE, FASTING 104 MG/DL (70-105); POTASSIUM SERUM 3.9 MEQ/L (3.5-5.1); SODIUM LEVEL 140 MEQ/L (136-145)
[2017-04-13] MEDS: SENOKOT S TAB PO ×2 (09:00→21:16)
[2017-04-13] MEDS: MOM 30ML SUSPENSION UDC PO (09:00)
[2017-04-13] MEDS: MORPHINE 15 MG SA TAB PO ×2 (10:48→21:17)
[2017-04-13] MEDS: rOPINIRole 0.25 MG TAB(REQUIP) PO ×2 (10:49→17:23)
[2017-04-13] MEDS: levETIRAcetam 250MG TABLET (KEPPRA) PO ×2 (10:49→17:22)
[2017-04-13] MEDS: MULTIVITAMINS/MINERALS THERAP 1 TAB PO (10:49)
[2017-04-13] MEDS: POTASSIUM CHLORIDE 10 MEQ SR TABLET PO ×2 (10:49→17:23)
[2017-04-13] MEDS: MAGNESIUM OXIDE 400 MG TAB (MAG-OX) PO ×2 (10:49→17:23)
[2017-04-13] MEDS: QUEtiapine FUMARATE 100 MG TAB PO (10:49)
[2017-04-13] MEDS: OYSTER SHELL CALCIUM 500 MG TAB PO ×2 (10:49→17:23)
[2017-04-13] MEDS: ATENOLOL 25 MG TAB PO ×2 (10:50→17:24)
[2017-04-13] MEDS: CLOPIDOGREL 75 MG TAB PO (10:50)
[2017-04-13] MEDS: ASPIRIN 81 MG ENTERIC TAB PO (10:50)
[2017-04-13] MEDS: BACLOFEN 10 MG TAB PO ×4 (10:50→21:16)
[2017-04-13] MEDS: DOXYCYCLINE HYCLATE 100 MG TAB PO ×2 (10:50→21:16)
[2017-04-13] MEDS: OMEPRAZOLE 20 MG CAP PO (10:50)
[2017-04-13] MEDS: traZODone 100 MG TAB PO (21:16)
[2017-04-13] MEDS: SIMVASTATIN 40 MG TAB PO (21:16)
[2017-04-13] MEDS: QUEtiapine FUMARATE 200 MG TAB PO (21:16)
[2017-04-14 06:54] LABS: HEMATOCRIT 38.6 % (42.0-52.0); HEMOGLOBIN 13.1 g/dl (14.0-18.0); MEAN CORPUSCULAR HGB CONC 33.9 g/dl (32.0-36.5); MEAN CORPUSCULAR VOLUME 85.6 fl (80.0-96.0); PLATELET COUNT, AUTOMATED 325 10^3/uL (150-450); RED BLOOD COUNT 4.51 10^6/uL (4.30-6.10); RED CELL DISTRIBUTION WIDTH 11.9 % (11.5-14.5)
[2017-04-14 07:22] LABS: ANION GAP 9 MEQ/L (8-16); BLOOD UREA NITROGEN 12 MG/DL (7-18); CARBON DIOXIDE LEVEL 26 MEQ/L (21-32); CHLORIDE LEVEL 105 MEQ/L (98-107); GLOMERULAR FILTRATION RATE > 60.0 (>60); GLUCOSE, FASTING 91 MG/DL (70-105); POTASSIUM SERUM 3.8 MEQ/L (3.5-5.1); SODIUM LEVEL 140 MEQ/L (136-145)
[2017-04-14] MEDS: VITAMIN D 50,000 UNITS CAPSULE (ERGOCALCIFEROL 1.25MG) PO (08:12)
[2017-04-14] MEDS: rOPINIRole 0.25 MG TAB(REQUIP) PO ×2 (08:12→17:06)
[2017-04-14] MEDS: OYSTER SHELL CALCIUM 500 MG TAB PO ×2 (08:12→17:07)
[2017-04-14] MEDS: OMEPRAZOLE 20 MG CAP PO (08:12)
[2017-04-14] MEDS: MULTIVITAMINS/MINERALS THERAP 1 TAB PO (08:13)
[2017-04-14] MEDS: MAGNESIUM OXIDE 400 MG TAB (MAG-OX) PO ×2 (08:13→17:07)
[2017-04-14] MEDS: CLOPIDOGREL 75 MG TAB PO (08:14)
[2017-04-14] MEDS: SENOKOT S TAB PO ×3 (08:14→21:23)
[2017-04-14] MEDS: ASPIRIN 81 MG ENTERIC TAB PO (08:15)
[2017-04-14] MEDS: POTASSIUM CHLORIDE 10 MEQ SR TABLET PO ×2 (08:15→17:07)
[2017-04-14] MEDS: MOM 30ML SUSPENSION UDC PO (08:15)
[2017-04-14] MEDS: MORPHINE 15 MG SA TAB PO ×2 (08:15→21:23)
[2017-04-14] MEDS: ATENOLOL 25 MG TAB PO ×2 (08:16→17:07)
[2017-04-14] MEDS: DOXYCYCLINE HYCLATE 100 MG TAB PO ×2 (08:16→21:23)
[2017-04-14] MEDS: BACLOFEN 10 MG TAB PO ×4 (08:16→21:23)
[2017-04-14] MEDS: QUEtiapine FUMARATE 100 MG TAB PO (08:16)
[2017-04-14] MEDS: levETIRAcetam 250MG TABLET (KEPPRA) PO ×2 (08:16→17:06)
[2017-04-14] MEDS ORDERED: PERCOCET 5MG/325MG TAB PO (12:15)
[2017-04-14] MEDS: PERCOCET 5MG/325MG TAB PO ×3 (12:35→18:25)
[2017-04-14] MEDS: QUEtiapine FUMARATE 200 MG TAB PO (21:23)
[2017-04-14] MEDS: SIMVASTATIN 40 MG TAB PO (21:23)
[2017-04-14] MEDS: traZODone 100 MG TAB PO (21:23)
[2017-04-15] MEDS: PERCOCET 5MG/325MG TAB PO ×2 (05:40→12:34)
[2017-04-15] MEDS: MOM 30ML SUSPENSION UDC PO (09:00)
[2017-04-15] MEDS: rOPINIRole 0.25 MG TAB(REQUIP) PO (09:04)
[2017-04-15] MEDS: MULTIVITAMINS/MINERALS THERAP 1 TAB PO (09:05)
[2017-04-15] MEDS: OMEPRAZOLE 20 MG CAP PO (09:05)
[2017-04-15] MEDS: levETIRAcetam 250MG TABLET (KEPPRA) PO (09:05)
[2017-04-15] MEDS: BACLOFEN 10 MG TAB PO ×2 (09:06→12:34)
[2017-04-15] MEDS: DOXYCYCLINE HYCLATE 100 MG TAB PO (09:06)
[2017-04-15] MEDS: MORPHINE 15 MG SA TAB PO (09:06)
[2017-04-15] MEDS: CLOPIDOGREL 75 MG TAB PO (09:06)
[2017-04-15] MEDS: POTASSIUM CHLORIDE 10 MEQ SR TABLET PO (09:07)
[2017-04-15] MEDS: ASPIRIN 81 MG ENTERIC TAB PO (09:07)
[2017-04-15] MEDS: QUEtiapine FUMARATE 100 MG TAB PO (09:07)
[2017-04-15] MEDS: OYSTER SHELL CALCIUM 500 MG TAB PO (09:07)
[2017-04-15] MEDS: MAGNESIUM OXIDE 400 MG TAB (MAG-OX) PO (09:07)
[2017-04-15] MEDS: SENOKOT S TAB PO (09:07)
[2017-04-15] MEDS: ATENOLOL 25 MG TAB PO (09:08)
== END 2017-04-15 13:00 | DRG 301 ==
LOC: M MS5PR 23:55 → M ED 19:59 → M ED INP 23:14
PROC: 0SRS0JA Replacement of Left Hip Joint, Femoral Surface with Synthetic Substitute, Uncemented, Open Approach (ICD-10-PCS; principal; 2017-04-07 08:56)
DX: S72.042A Displaced fracture of base of neck of left femur, initial encounter for closed fracture (principal); I69.354 Hemiplegia and hemiparesis following cerebral infarction affecting left non-dominant side; I10 Essential (primary) hypertension; W18.30XA Fall on same level, unspecified, initial encounter; Y92.009 Unspecified place in unspecified non-institutional (private) residence as the place of occurrence of the external cause; F31.9 Bipolar disorder, unspecified; F41.9 Anxiety disorder, unspecified; G40.909 Epilepsy, unspecified, not intractable, without status epilepticus; E78.00 Pure hypercholesterolemia, unspecified; G47.00 Insomnia, unspecified; G89.29 Other chronic pain; G25.81 Restless legs syndrome; M62.838 Other muscle spasm; K21.9 Gastro-esophageal reflux disease without esophagitis; Z87.828 Personal history of other (healed) physical injury and trauma; Z79.82 Long term (current) use of aspirin; Z79.899 Other long term (current) drug therapy; Z88.5 Allergy status to narcotic agent; Z88.8 Allergy status to other drugs, medicaments and biological substances; E78.5 Hyperlipidemia, unspecified; Z79.01 Long term (current) use of anticoagulants

== ENCOUNTER → 2017-05-13 | Outpatient (REF) ==
[2017-05-13 08:07] LABS: HEMATOCRIT 41.9 % (42.0-52.0); HEMOGLOBIN 13.7 g/dl (14.0-18.0); MEAN CORPUSCULAR HEMOGLOBIN 29.1 pg (27.0-33.0); MEAN CORPUSCULAR HGB CONC 32.7 g/dl (32.0-36.5); PLATELET COUNT, AUTOMATED 126 10^3/uL (150-450); RED BLOOD COUNT 4.71 10^6/uL (4.30-6.10); RED CELL DISTRIBUTION WIDTH 13.6 % (11.5-14.5); WHITE BLOOD COUNT 4.1 10^3/uL (4.0-10.0)
[2017-05-13 08:28] LABS: ANION GAP 7 MEQ/L (8-16); BLOOD UREA NITROGEN 8 MG/DL (7-18); CALCIUM LEVEL 8.4 MG/DL (8.5-10.1); CARBON DIOXIDE LEVEL 29 MEQ/L (21-32); CHLORIDE LEVEL 110 MEQ/L (98-107); CREATININE FOR GFR 0.73 MG/DL (0.70-1.30); GLOMERULAR FILTRATION RATE > 60.0 (>60); GLUCOSE, FASTING 92 MG/DL (70-100); MAGNESIUM LEVEL 2.4 MG/DL (1.8-2.4); POTASSIUM SERUM 3.9 MEQ/L (3.5-5.1); SODIUM LEVEL 146 MEQ/L (136-145)
[2017-05-13 11:18] LABS: TOTAL 25(OH) VITAMIN D 43.9 NG/ML (30.0-100.0)
== END ==
LOC: SKLAB3 12:49
DX: Z87.820 Personal history of traumatic brain injury (principal); I10 Essential (primary) hypertension

== ENCOUNTER 2017-09-19 21:33 | Emergency (ER) | payer OTHER, MEDICARE ==
[2017-09-19] MEDS: PERCOCET 5MG/325MG TAB PO (22:06)
[2017-09-19] MEDS: OXYCODONE/APAP 5MG/325MG(BULK FOR ED) 1 TABLET PO (23:05)
== END 2017-09-19 23:08 | disposition home or self-care (01) ==
LOC: M ED 21:33
DX: S52.572A Other intraarticular fracture of lower end of left radius, initial encounter for closed fracture (principal); S52.602A Unspecified fracture of lower end of left ulna, initial encounter for closed fracture; W19.XXXA Unspecified fall, initial encounter; Y92.099 Unspecified place in other non-institutional residence as the place of occurrence of the external cause; Y93.9 Activity, unspecified; Y99.9 Unspecified external cause status; I10 Essential (primary) hypertension; Z87.891 Personal history of nicotine dependence; Z79.82 Long term (current) use of aspirin; Z79.899 Other long term (current) drug therapy; Z88.5 Allergy status to narcotic agent; Z88.8 Allergy status to other drugs, medicaments and biological substances
CPT/HCPCS: 73090

== ENCOUNTER → 2018-07-01 | Outpatient (CLI) | payer OTHER, MEDICARE ==
[~2018-07-01] MED LIST changes: +ACET-683 PO; +AMOX500C PO; +ASPI81CH49 PO; -ASPI81TA13 PO; +ASPI81TA24 PO; +ATEN25TA PO; +CALC500T49 PO; +CLAR1TAB2 PO; +FLOM0.4C39 PO; -FLOM5CAP PO; +GABA-1171 PO; -GABA-279 PO; +HYDR-2541 PO; +HYDR-643 PO; -HYDR25TAB PO; -KEPP1000 PO; +KEPP10002 PO; +KEPP250T5 PO; +MAGN1TAB26; +MAGN400T PO; +MELO15TA28 PO; -MELO15TA4 PO; +MORP15TASA PO; +MULTCAP11 PO; +OMEP20CA3 PO; +PERC5TAB12 PO; +PLAV1TAB2 PO; -QUET1TAB11 PO; +QUET400T PO; +ROPI0.5T PO; +SILD20TA11 PO; +SIMV40TA2 PO; +TENO1TAB3; +TRAZ-160 PO; +TRAZ-163 PO; -TRAZ50TA4 PO; +VITA200028 PO; +VITMTA PO
--- NOTE | 2018-07-01 17:19 | REP ---
Lumbar spine five views: There are no comparisons. 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 Vertebral body heights, interspacing and alignment are normal. There are small anterior osteophytes at L2, three, four and five compatible with multilevel degenerative disc disease. There is no spondylolysis. There is no spondylolisthesis. The pedicles and facets are unremarkable. The sacroiliac articulations are unremarkable. Impression: Degenerative disc disease as described. 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 Electronically Signed by Speedy Taylor MD 07/01/2018 05:12 P
== END ==
LOC: M WUC 15:12
PROVIDERS: ATTEND Physician Assistant
DX: M43.8X8 Other specified deforming dorsopathies, sacral and sacrococcygeal region (principal); M25.78 Osteophyte, vertebrae

== ENCOUNTER → 2018-08-21 | Outpatient (REF) | payer OTHER, MEDICARE ==
[~2018-08-21] MED LIST changes: -TRAZ-160 PO; +TRAZ-252 PO
[2018-08-21 13:06] LABS: BASO # 0.1 10^3/uL (0.0-0.2); EOS # 0.1 10^3/uL (0.0-0.50); HEMOGLOBIN 16.8 g/dl (13.5-17.5); LYMPH # 1.6 10^3/uL (1.5-4.5); LYMPH % 31.4 % (24.0-44.0); MEAN CORPUSCULAR HEMOGLOBIN 30.4 pg (27.0-33.0); MEAN CORPUSCULAR HGB CONC 33.6 g/dl (32.0-36.5); MEAN CORPUSCULAR VOLUME 90.6 fl (80.0-96.0); MONO # 0.5 10^3/uL (0.0-0.8); MONO % 10.2 % (0.0-5.0); NEUTROPHILS # 2.9 10^3/uL (1.8-7.7); NEUTROPHILS % 56.2 % (36.0-66.0); PLATELET COUNT, AUTOMATED 168 10^3/uL (150-450); RED BLOOD COUNT 5.52 10^6/uL (4.30-6.10); WHITE BLOOD COUNT 5.1 10^3/uL (4.0-10.0)
[2018-08-21 14:15] LABS: ERYTHROCYTE SEDIMENTATION RATE 3 mm/hr (0-15)
[2018-08-28 00:09] LABS: HLA B5701-1 Negative (.)
== END ==
LOC: M LABDRAW1 09:33
PROVIDERS: ATTEND Orthopaedic Surgery
DX: Z47.1 Aftercare following joint replacement surgery (principal)

== ENCOUNTER → 2018-09-02 | Outpatient (REF) | payer OTHER, MEDICARE ==
[2018-09-02 17:59] LABS: SOURCE, BODY FLUID LT HIP; SYNOVIAL FLUID COLOR RED (YELLOW)
== END ==
LOC: M LAB REF 17:19
PROVIDERS: ATTEND Physician Assistant Medical
DX: Z47.1 Aftercare following joint replacement surgery (principal); Z96.642 Presence of left artificial hip joint; S52.532D Colles' fracture of left radius, subsequent encounter for closed fracture with routine healing

== ENCOUNTER → 2018-12-26 | Outpatient (CLI) | payer OTHER, MEDICARE ==
[~2018-12-26] MED LIST changes: -OMEP20CA3 PO; +OMEP20CA4 PO
--- NOTE | 2018-12-26 19:17 | REP ---
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 There is sacralization of L5. There is mild diffuse spurring. There is mild disc space narrowing and subchondral sclerosis at all levels. There is sclerosis at the posterior facets diffusely. Posterior elements are intact. IMPRESSION :No change since the prior study of 07/01/2018. Four lumbar type vertebral bodies indicate presence of a transitional vertebral body. 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 There are mild diffuse degenerative changes. Electronically Signed by Speedy Winston MD 12/29/2018 11:21 P
== END ==
LOC: M WUC 15:49
PROVIDERS: ATTEND Physician Assistant
DX: S39.012A Strain of muscle, fascia and tendon of lower back, initial encounter (principal); W18.30XA Fall on same level, unspecified, initial encounter; Y92.009 Unspecified place in unspecified non-institutional (private) residence as the place of occurrence of the external cause

== ENCOUNTER → 2019-09-05 | Outpatient (CLI) | payer MEDICARE, BC ==
[~2019-09-05] MED LIST changes: -MAGN400T PO; +MAGN400T3 PO; +OMEP1CAP73 PO; -OMEP20CA4 PO; -ROPI0.5T PO; +ROPI0.5T3 PO; -SIMV40TA2 PO; +SIMV40TA20 PO; -TRAZ-163 PO; +TRAZ-257 PO
--- NOTE | 2019-09-06 16:18 | REP ---
Six views left ribs and two views chest: 09/05/2019. Indication: Chest/rib pain. Comparison: 04/02/2017. Findings: The lungs are clear. There is no pleural effusion or pneumothorax. The cardiac silhouette is not enlarged. No rib fractures are detected. Impression: Clear lungs. No rib fracture detected. Electronically Signed by Rohan Skinner DO 09/06/2019 04:10 P
== END ==
LOC: M WUC 13:23
PROVIDERS: ATTEND Nurse Practitioner Family
DX: S23.41XA Sprain of ribs, initial encounter (principal); W18.30XA Fall on same level, unspecified, initial encounter; Y92.9 Unspecified place or not applicable

== ENCOUNTER → 2020-04-01 | Outpatient (REF) | payer BC, MEDICARE | LOC: M LAB REF 08:40 | PROVIDERS: ATTEND Otolaryngology | DX: D10.0 Benign neoplasm of lip (principal) ==

== ENCOUNTER → 2020-05-02 | Outpatient (CLI) | payer BC, MEDICARE, OTHER ==
[2020-05-02 17:14] LABS: BASO # 0.1 10^3/uL (0.0-0.2); EOS # 0.1 10^3/uL (0.0-0.5); EOS % 1.1 % (0.0-3.0); HEMATOCRIT 47.3 % (42.0-52.0); HEMOGLOBIN 15.5 g/dl (13.5-17.5); LYMPH # 1.8 10^3/uL (1.5-5.0); LYMPH % 28.3 % (24.0-44.0); MEAN CORPUSCULAR HEMOGLOBIN 29.5 pg (27.0-33.0); MEAN CORPUSCULAR HGB CONC 32.8 g/dl (32.0-36.5); MEAN CORPUSCULAR VOLUME 90.1 fl (80.0-96.0); MONO # 0.7 10^3/uL (0.0-0.8); MONO % 10.4 % (0.0-5.0); NEUTROPHILS # 3.7 10^3/uL (1.5-8.5); PLATELET COUNT, AUTOMATED 190 10^3/uL (150-450); RED BLOOD COUNT 5.25 10^6/uL (4.30-6.10); WHITE BLOOD COUNT 6.3 10^3/uL (4.0-10.0)
[2020-05-02 17:51] LABS: ERYTHROCYTE SEDIMENTATION RATE 7 mm/hr (0-15)
== END ==
LOC: M WUC 14:36
PROVIDERS: ATTEND Orthopaedic Surgery
DX: M25.552 Pain in left hip (principal)

== ENCOUNTER 2020-08-24 14:49 | Emergency (ER) | payer BC, MEDICARE, OTHER ==
[~2020-08-24] VITALS: Ht 182.9 cm; Wt 127.3 kg
--- NOTE | 2020-08-24 15:58 | REP ---
INDICATION: trauma COMPARISON: None. TECHNIQUE: AP, lateral, bilateral oblique, and coned-down views of the lumbar spine. FINDINGS: Moderate multilevel degenerative changes include early osteophytosis, endplate sclerosis, and facet arthropathy. Alignment and lordosis maintained. No acute fracture/compression injury or subluxation is appreciated. IMPRESSION: Moderate multilevel degenerative changes. No evidence for acute fracture/compression injury or subluxation. <Electronically signed by Cristhian Lopez > 08/24/20 [id number]
--- NOTE | 2020-08-24 16:00 | REP ---
INDICATION: trauma COMPARISON: None. TECHNIQUE: AP, lateral, and swimmers views. FINDINGS: Alignment and kyphosis is maintained. Vertebral bodies intact. No acute fracture / compression injury or subluxation. Moderate degenerative changes include endplate sclerosis with early osteophyte formation. Paravertebral soft tissues are normal. IMPRESSION: Moderate degenerative changes. No acute fracture/compression injury or subluxation. <Electronically signed by Cristhian Lopez > 08/24/20 [id number]
[2020-08-24 16:48] VITALS: BP 130/85
== END 2020-08-24 17:00 | disposition home or self-care (01) ==
LOC: M ED 14:49 → EDBD 14:49 → M ED 17:00
DX: Z04.1 Encounter for examination and observation following transport accident (principal); S29.012A Strain of muscle and tendon of back wall of thorax, initial encounter; S39.012A Strain of muscle, fascia and tendon of lower back, initial encounter; V43.62XA Car passenger injured in collision with other type car in traffic accident, initial encounter; Y92.89 Other specified places as the place of occurrence of the external cause; Y93.89 Activity, other specified; Y99.8 Other external cause status; I10 Essential (primary) hypertension; E78.9 Disorder of lipoprotein metabolism, unspecified; F31.9 Bipolar disorder, unspecified; K21.9 Gastro-esophageal reflux disease without esophagitis; R53.1 Weakness; S06.9X0S Unspecified intracranial injury without loss of consciousness, sequela; X58.XXXS Exposure to other specified factors, sequela; Z79.82 Long term (current) use of aspirin; Z79.899 Other long term (current) drug therapy; Z88.5 Allergy status to narcotic agent; Z88.8 Allergy status to other drugs, medicaments and biological substances

== ENCOUNTER 2021-02-25 23:26 | Emergency (ER) | payer BC, MEDICARE, OTHER ==
[~2021-02-25] VITALS: Ht 185.4 cm; Wt 121.8 kg
[~2021-02-25 23:26] MED LIST changes: -MAGN400T3 PO; +MAGN400T33 PO; -QUET400T PO; +QUET400T2 PO
[2021-02-25 23:27] VITALS: BP 138/92
--- OUTSIDE RECORDS SUMMARY | 2021-02-25 23:34 | CCD ---
Author Author [facility] Organization [facility] Address Unknown Phone Unavailable Care Team Providers Care Steel Welder Name Role Phone Thiago Yoon Chelsie Unavailable Unavailable Natalie De Jesus MD Unavailable Unavailable Natalie De Jesus MD Unavailable Unavailable Natalie De Jesus MD Unavailable Unavailable Natalie De Jesus MD Unavailable Unavailable Natalie De Jesus MD Unavailable Unavailable Natalie De Jesus MD Unavailable Unavailable Natalie De Jesus MD Unavailable Unavailable Natalie De Jesus MD Unavailable Unavailable Natalie De Jesus MD Unavailable Unavailable Natalie De Jesus MD Unavailable Unavailable Natalie De Jesus MD Unavailable Unavailable Natalie De Jesus MD Unavailable Unavailable Natalie De Jesus MD Unavailable Unavailable Natalie De Jesus MD Unavailable Unavailable Natalie De Jesus MD Unavailable Unavailable Natalie De Jesus MD Unavailable Unavailable Natalie De Jesus MD Unavailable Unavailable Natalie De Jesus MD Unavailable Unavailable Natalie De Jesus MD Unavailable Unavailable Natalie De Jesus MD Unavailable Unavailable Natalie De Jesus MD Unavailable Unavailable Natalie De Jesus MD Unavailable Unavailable Natalie De Jesus MD Unavailable Unavailable Natalie De Jesus MD Unavailable Unavailable Natalie De Jesus MD Unavailable Unavailable Natalie De Jesus MD Unavailable Unavailable Natalie De Jesus MD Unavailable Unavailable Natalie De Jesus MD Unavailable Unavailable Natalie De Jesus MD Unavailable Unavailable De Jesus, Natalie Nguyen MD Unavailable Unavailable De Jesus, Natalie Nguyen MD Unavailable Unavailable De Jesus, Natalie Nguyen MD Unavailable Unavailable De Jesus, Natalie Nguyen MD Unavailable Unavailable De Jesus, Natalie Nguyen MD Unavailable Unavailable De Jesus, Natalie Nguyen MD Unavailable Unavailable De Jesus, Natalie Nguyen MD Unavailable Unavailable De Jesus, Natalie Nguyen MD Unavailable Unavailable De Jesus, Natalie Nguyen MD Unavailable Unavailable De Jesus, Natalie Nguyen MD Unavailable Unavailable De Jesus, Natalie Nguyen MD Unavailable Unavailable De Jesus, Natalie Nguyen MD Unavailable Unavailable De Jesus, Natalie Nguyen MD Unavailable Unavailable De Jesus, Natalie Nguyen MD Unavailable Unavailable De Jesus, Natalie Nguyen MD Unavailable Unavailable De Jesus, Natalie Nguyen MD Unavailable Unavailable De Jesus, Natalie Nguyen MD Unavailable Unavailable De Jesus, Natalie Nguyen MD Unavailable Unavailable De Jesus, Natalie Nguyen MD Unavailable Unavailable De Jesus, Natalie Nguyen MD Unavailable Unavailable De Jesus, Natalie Nguyen MD Unavailable Unavailable De Jesus, Natalie Nguyen MD Unavailable Unavailable La PalmaNikos MD Unavailable Unavailable La PalmaNikos MD Unavailable Unavailable Nikos Posada MD Unavailable Unavailable Nikos Posada MD Unavailable Unavailable Nikos Posada MD Unavailable Unavailable Nikos Posada MD Unavailable Unavailable La PalmaNikos MD Unavailable Unavailable La PalmaNikos MD Unavailable Unavailable La PalmaNikos MD Unavailable Unavailable La PalmaNikos MD Unavailable Unavailable La PalmaNikos larsen MD Unavailable Unavailable La PalmaNikos larsen MD Unavailable Unavailable Nikos Posada MD Unavailable Unavailable La PalmaNikos larsen MD Unavailable Unavailable La PalmaNikos MD Unavailable Unavailable La PalmaNikos MD Unavailable Unavailable La PalmaNikos MD Unavailable Unavailable La PalmaNikos larsen MD Unavailable Unavailable Nikos Posada MD Unavailable Unavailable Nikos Posada MD Unavailable Unavailable Nikos Posada MD Unavailable Unavailable Nikos Posada MD Unavailable Unavailable Nikos Posada MD Unavailable Unavailable Nikos Posada MD Unavailable Unavailable La PalmaNikos MD Unavailable Unavailable Nikos Posada MD Unavailable Unavailable Nikos Posada MD Unavailable Unavailable Nikos Posada MD Unavailable Unavailable Nikos Posada MD Unavailable Unavailable Nikos Posada MD Unavailable Unavailable Nikos Posada MD Unavailable Unavailable Parish Gates MD Unavailable Unavailable Parish Gates MD Unavailable Unavailable Parish Gates MD Unavailable Unavailable Parish Gates MD Unavailable Unavailable Parish Gates MD Unavailable Unavailable Parish Gates MD Unavailable Unavailable Parish Gates MD Unavailable Unavailable Praish Gates MD Unavailable Unavailable Vaneenenaam, Parish Zimmer MD Unavailable Unavailable Vaneenenaam, Parish Zimmer MD Unavailable Unavailable Vaneenenaam, Parish Zimmer MD Unavailable Unavailable Vaneenenaam, Parish Zimmer MD Unavailable Unavailable Vaneenenaam, Parish Zimmer MD Unavailable Unavailable Vaneenenaam, Parish Zimmer MD Unavailable Unavailable Vaneenenaam, Parish Zimmer MD Unavailable Unavailable Vaneenenaam, Parish Zimmer MD Unavailable Unavailable Vaneenenaam, Parish Zimmer MD Unavailable Unavailable Vaneenenaam, Parish Zimmer MD Unavailable Unavailable Vaneenenaam, Parish Zimmer MD Unavailable Unavailable Vaneenenaam, Parish Zimmer MD Unavailable Unavailable Vaneenenaam, Parish Zimmer MD Unavailable Unavailable Vaneenenaam, Parish Zimmer MD Unavailable Unavailable Vaneenenaam, Parish Zimmer MD Unavailable Unavailable Vaneenenaam, Parish Zimmer MD Unavailable Unavailable Vaneenenaam, Parish Zimmer MD Unavailable Unavailable Vaneenenaam, Parish Zimmer MD Unavailable Unavailable Vaneenenaam, Parish Zimmer MD Unavailable Unavailable Vaneenenaam, Parish Zimmer MD Unavailable Unavailable Vaneenenaam, Parish Zimmer MD Unavailable Unavailable Vaneenenaam, Parish Zimmer MD Unavailable Unavailable Vaneenenaam, Parish Zimmer MD Unavailable Unavailable Vaneenenaam, Parish Zimmer MD Unavailable Unavailable Vaneenenaam, Parish Zimmer MD Unavailable Unavailable Vaneenenaam, Parish Zimmer MD Unavailable Unavailable Vaneenenaam, Parish Zimmer MD Unavailable Unavailable Vaneenenaam, Parish Zimmer MD Unavailable Unavailable Vaneenenaam, Parish Zimmer MD Unavailable Unavailable Vaneenenaam, Parish Zimmer MD Unavailable Unavailable Vaneenenaam, Parish Zimmer MD Unavailable Unavailable Vaneenenaam, Parish Zimmer MD Unavailable Unavailable Vaneenenaam, Parish Zimmer MD Unavailable Unavailable Vaneenenaam, Parish Zimmer MD Unavailable Unavailable Vaneenenaam, Parish Zimmer MD Unavailable Unavailable Vaneenenaam, Parish Zimmer MD Unavailable Unavailable Vaneenenaam, Parish Zimmer MD Unavailable Unavailable Vaneenenaam, Parish Zimmer MD Unavailable Unavailable Vaneenenaam, Parish Zimmer MD Unavailable Unavailable Re-disclosure Warning The records that you are about to access may contain information from federally-assisted alcohol or drug abuse programs. If such information is present, then the following federally mandated warning applies: This information has been disclosed to you from records protected by federal confidentiality rules (42 CFR part 2). The federal rules prohibit you from making any further disclosure of this information unless further disclosure is expressly permitted by the written consent of the person to whom it pertains or as otherwise permitted by 42 CFR part 2. A general authorization for the release of medical or other information is NOT sufficient for this purpose. The Federal rules restrict any use of the information to criminally investigate or prosecute any alcohol or drug abuse patient.The records that you are about to access may contain highly sensitive health information, the redisclosure of which is protected by Article 27-F of the [facility] Public Health law. If you continue you may have access to information: Regarding HIV / AIDS; Provided by facilities licensed or operated by the [facility] Office of Mental Health; or Provided by the [facility] Office for People With Developmental Disabilities. If such information is present, then the following [facility] mandated warning applies: This information has been disclosed to you from confidential records which are protected by state law. State law prohibits you from making any further disclosure of this information without the specific written consent of the person to whom it pertains, or as otherwise permitted by law. Any unauthorized further disclosure in violation of state law may result in a fine or mcc sentence or both. A general authorization for the release of medical or other information is NOT sufficient authorization for further disc losure. Family History Family Member Name Family Member Gender Family Member Status Date o f Status Description Data Source(s) Unknown Unknown Problem [facility] Unknown Unknown Problem [facility] ([facility] Unknown Male Problem [facility] ([facility]) Encounters Encounter Providers Location Date Indications Data Source(s ) OFFICE OUTPATIENT VISIT 15 MINUTES Attender: Patrick De Jesus MD Phys ical Therapy 10/03/2020 02:45:00 PM EDT [facility] ([facility]) OFFICE OUTPATIENT VISIT 15 MINUTES Attender: Parish babcock MD Physical Therapy 05/02/2020 12:15:00 PM EST [facility] ([facility]) Outpatient Admitter: Chelsie Myrickerrer: Chelsie Yoon 04/05/2020 12:00:00 AM EST Unspecified lesions of oral mucosa [facility] Unspecified lesions of oral mucosa Outpatient Attender: Nikos Dietz/Swetha/Romain/Juanita russell 01/19/2020 01:30:00 PM EDT [facility] ([facility] Medications Medication Brand Name Start Date Product Form Dose Route Admi nistrative Instructions Pharmacy Instructions Status Indications Reaction Description Data Source(s) Amoxicillin 500 MG / Clavulanate 125 MG Oral Tablet [Augment in] Augmentin 04/01/2020 12:00:00 AM EST ORAL active [facility] ([facility], ) Insurance Providers Payer name Policy type / Coverage type Policy ID Covered republican ID Covered republican's relationship to oneal Policy Oneal Plan Information MVP [facility] MCR MGD CARE [id number] [facility] [id number] [facility] [id number] Patient [id number] COMMERCIAL MISC [id number] Patient [id number] [facility] POS EPO INDEM [id number] SELF [id number] MEDICARE PART A [id number] Patient [id number] MEDICARE [id number] SELF [id number] A [employer] () Workers Compensation [id number] 2.16.840.1.105469.3.227.99.991.66392.0 Self [id number] [employer] [place] () Workers Compensation [id number].[id number] Self [id number] [employer] [place] () Workers Compensation [id number] Self [id number] [employer] () Workers Compensation [id number] 2.16.840.1.610492.3.227.99.991.38715.0 Self [id number] [employer] () Workers Compensation [id number] 2.16.840.1.382817.3.227.99.991.69600.0 Self [id number] [employer] () Workers Compensation [id number] 2.16.840.1.964509.3.227.99.991.61294.0 Self [id number] [employer] () Workers Compensation [id number] 2.16.840.1.311466.3.227.99.991.74234.0 Self [id number] [employer]/[place] () Workers Compensation [id number] 2.16.840.1.103018.3.227.99.991.04454.0 Self [id number] [employer]/[place] () Workers Compensation [id number] 2.16.840.1.789143.3.227.99.991.69985.0 Self [id number] [employer] () Workers Compensation [id number] Self [id number] [employer]/[place] () Workers Compensation [id number] 2.16.840.1.552722.3.227.99.991.77629.0 Self [id number] [employer] [place] () Workers Compensation [id number] 2.16.840.1.114590.3.227.99.991.40581.0 Self [id number] [employer] [place] () Workers Compensation [id number] 2.16.840.1.196386.3.227.99.991.30316.0 Self [id number] [employer] [place] () Workers Compensation [id number] 2.16.840.1.101070.3.227.99.991.38466.0 Self [id number] [employer] [place] () Workers Compensation [id number].[id number] Self [id number] [employer] [place] () Workers Compensation [id number] 2.16.840.1.307723.3.227.99.991.59123.0 Self [id number] [employer] [place] () Workers Compensation [id number] MRN.[id number] Self [id number] [employer]/[place] [place] () Workers Compensation [id number] 2.16.840.1.699058.3.227.99.991.98986.0 Self [id number] Acc/Dol ( Labor) () Workers Compensation [id number] 2.16.840.1.166221.3.227.99.991.20053.0 Self [id number] Acc/Dol ( Labor) () Workers Compensation [id number] 2.16.840.1.500464.3.227.99.991.90206.0 Self [id number] Acc/Dol ( Labor) () Workers Compensation [id number] 2.16.840.1.835060.3.227.99.991.69460.0 Self [id number] [id number] Acc/Dol ( Labor) () Workers Compensation [id number] 2.16.840.1.821036.3.227.99.991.96160.0 Self [id number] [id number] Acc/Dol ( Labor) () Workers Compensation [id number] MRN.[id number] Self [id number] Acc/Dol ( Labor) () Workers Compensation [id number] MRN.[id number] Self [id number] Acc/Dol ( Labor) () Workers Compensation [id number] 2.16.840.1.681351.3.227.99.991.03778.0 Self [id number] [id number] Acc/Dol ( Labor) () Workers Compensation [id number] 2.16.840.1.687989.3.227.99.991.91451.0 Self [id number] [id number] Acc/Dol ( Labor) () Workers Compensation [id number] 2.16.840.1.847551.3.227.99.991.62423.0 Self [id number] [id number] Acc/[employer]ol [place] ([place]) Workers Compensation [id number] 2.0.1.109646.3.227.99.991.05159.0 Self [id number] [id number] MVP H [id number] Self [id number] MEDICARE A [id number] Self [id number] A MEDICARE A [id number] Self [id number] [place] Med[place] B [id number] ..1.542884.3.227.99.991.19692.0 Self 1 [id number] [place] Med[place] B [id number] MRN.[id number] Self [id number] MVP (pr) Commercial [id number] MRN.[id number] Family Dependent [id number] [place] Med[place]ap Part B [id number] MRN.[id number] Self [id number] MVP (pr) Commercial [id number] MRN.[id number]-[id number] Family Dependent [id number] [place] Med[place]ap Part B [id number] .0.1.277401.3.227.99.991.23416.0 Self 1 [id number] MVP (pr) Commercial [id number] 2.0.1.573718.3.227.99.9 91.12089.0 Family Dependent [id number] [place] Medigap Part B [id number] 2.0.1.119846.3.227.99.991.67251.0 Self 1 [id number] MVP (pr) Commercial [id number] 2..840.1.769148.3.227.99.9 91.78714.0 Family Dependent [id number] [place] Medigap Part B [id number] 2.840.1.390894.3.227.99.991.44200.0 Self 1 [id number] MVP (pr) Commercial [id number] 2.840.1.687498.3.227.99.9 91.83952.0 Family Dependent [id number] [place] Medigap Part B [id number] 2.840.1.689182.3.227.99.991.12973.0 Self 1 [id number] MVP (pr) Commercial [id number] 2.840.1.368005.3.227.99.9 91.81921.0 Family Dependent [id number] [place] Medigap Part B [id number] .840.1.730163.3.227.99.991.16433.0 Self 1 [id number] MVP (pr) Commercial [id number] 2.840.1.380170.3.227.99.9 91.83175.0 Family Dependent [id number] Medicare [place] Medigap Part B [id number] 840.1.856904.3.227.99.991.40706.0 Self 1 [id number] MVP (pr) Commercial [id number] .840.1.705907.3.227.99.9 91.14427.0 Family Dependent [id number] MVP (pr) Commercial [id number] .840.1.229175.3.227.99.9 91.77786.0 Family Dependent [id number] EXCELLUS C [id number] Spouse [id number] OTHER B [id number] Self [id number] OTHER B [id number] Self [id number] MEDICARE [id number] SP [id number] A MVP Commercial [id number] .1.104041.3.227.99.1 767.4531.0 Family Dependent [id number] Medicare Dme Supplies Medigap Part B [id number] .1.167520.3.227.99.991.29244.0 Self 1 [id number] Medicare Dme Supplies Medigap Part B [id number] MRN.[id number] Self [id number] [facility] [id number] SP [id number] [facility] P [id number] S [id number] [facility] Commercial [id number].[id number] Family Dependent [id number] Medicare Natl Gov't Servi Medigap Part B [id number] MRN.[id number] Self [id number] Medicare Dme Supplies Medigap Part B [id number].[id number] Self [id number] [facility] [id number] WI2 [id number] [facility] [id number] WI2 [id number] 0 [facility] O [id number] S [id number] MEDICARE C [id number] S [id number] [facility] [id number] SP [id number] PROGRESSIVE CO NO FAULT [id number] SP [id number] P HMO O [id number] U [id number] [facility] [id number] S [id number] MEDICARE C [id number] S [id number] A P Commercial [id number] .1.102903.3.227.99.1767.4531. 0 Self [id number] P Commercial [id number] 2.0.1.793926.3.227.99.1767.4531. 0 Self [id number] NATALIE HINTON SHERLYN [id number] SP [id number] P Commercial [id number] Self SELF PAY UNAVAILABLE SELF UNAVAILA BLE 'S ADMINISTRATION [id number] SP [id number] MEDICARE [id number] SP [id number] Medicare Dme Supplies Medigap Part B [id number] 2.0.1.973400.3.227.99.991.62031.0 Self 1 [id number] [facility] [employer] [id number] [facility] [id number] [facility] [id number] SP [id number] Medicare Medigap Part B [id number] 2.0.1.388569.3.227.99.936. 81255.0 Self [id number] [facility] Health Plans Commercial [id number] 2.0.1.268890.3.227. 99.936.46056.0 Family Dependent [id number] 01 [facility] Commercial [id number] 2.0.1.633075.3.227.99.1767.4531. 0 Self [id number] Medicare Dme Supplies Medigap Part B [id number] 2.0.1.598555.3.227.99.991.93612.0 Self 1 [id number] Medicare Natl Gov't Servi Medicare Primary [id number] 2.0.1.919436.3.227.99.1767.4531.0 Self 5 [id number] [employer] O [id number] S [id number] Medicare Dme Supplies Medigap Part B [id number] 2.0.1.309889.3.227.99.991.70952.0 Self 1 [id number] [facility] Commercial [id number] 2.0.1.862714.3.227.99.1767.4531. 0 [facility] [id number] Problems, Conditions, and Diagnoses Code Display Name Description Problem Type Effective Dates Data Source(s) K13.70 Unspecified lesions of oral mucosa Unspecified l esions of oral mucosa Diagnosis 04/05/2020 02:32:00 PM [facility] [id number] Essential hypertension Essential hypertension Problem 01/19/2020 12:00:00 AM EDT [facility] ([facility], ) Surgeries/Procedures Procedure Description Date Indications Data Source(s) OFFICE OUTPATIENT VISIT 15 MINUTES 10/03/2020 12:00:00 AM EDT [facility] ([facility]) X-Ray Hip Unilateral With Pelvis 2-3 Views 05/02/2020 12:00:00 AM EST [facility] ([facility]) OFFICE OUTPATIENT VISIT 15 MINUTES 05/02/2020 12:00:00 AM EST [facility] ([facility]) Excise Benign Lesion <.6CM Face/Ear/Eyelid/Nose/Lip/Mucous Memb 04/01/2020 12:00:00 AM EST [facility] Results ID Date Data Source [id number] 05/02/2020 02:37:00 PM EST [facility] ([facility]) Name Value Range Interpretation Code Description Data Shazia rce(s) Supporting Document(s) Erythrocyte sedimentation rate by Westergren method 7 mm/hr 0-15 [facility] C reactive protein [Mass/volume] in Serum or Plasma by High sensitivity method Laboratory test result 0.00-0.30 [facility] ([facility]) ID Date Data Source [id number] 05/02/2020 02:37:00 PM EST [facility] ([facility]) Name Value Range Interpretation Code Description Data Shazia rce(s) Supporting Document(s) White Blood Count 6.3 10 4.0-10.0 [facility] ([facility]) Red Blood Count 5.25 10 4.30-6.10 [facility] ([facility]) Hematocrit 47.3 % 42.0-52.0 [facility] ([facility] Hemoglobin 15.5 g/dL 13.5-17.5 [facility] ([facility] ) Mean Corpuscular Volume 90.1 fl 80.0-96.0 M EDENT ([facility]) Mean Corpuscular Hemoglobin 29.5 pg 27.0-33.0 [facility] ([facility]) Mean Corpuscular HGB Conc 32.8 g/dL 32.0-36.5 [facility] ([facility]) Platelet Count, Automated 190 10 150-450 [facility] ([facility]) Neutrophils % 59.0 % 36.0-66.0 [facility] ([facility]) Red Cell Distribution Width 12.3 % 11.5-14.5 [facility] ([facility]) Dawes % 10.4 % 0.0-5.0 [facility] Lymph % 28.3 % 24.0-44.0 [facility] Baso % 1.0 % 0.0-1.0 [facility] Eos % 1.1 % 0.0-3.0 [facility] Immature Granulocyte % 0.2 % 0-3.0 [facility] ([facility]) Neutrophils # 3.7 10 1.5-8.5 [facility] ([facility]) Nucleated Red Blood Cell % 0.0 % 0-0 MED [facility] ([facility]) Lymph # 1.8 10 1.5-5.0 [facility] ([facility]) Dawes # 0.7 10 0.0-0.8 [facility] ([facility] Eos # 0.1 10 0.0-0.5 [facility] ([facility] Baso # 0.1 10 0.0-0.2 [facility] ([facility]) ID Date Data Source [id number] 04/06/2020 11:36:00 AM [facility] Surgical Pathology ReportName: Demarcsu CRONINAna AmaraMRN: [id number] Number: [id number] Date: 04/05/2020 00:00Received Date: 04/05/2020 14:36Physician(s): CHELSIE YOON MD VYAS, SHIKHAR G,CASSIEpecimen(s) ReceivedA: Slides received for consultation, ZOILAClinical HistoryLip lesion, removal. Non-healing lesion. No previous relevantdiagnosis/other pertinent information. Your opinion to R/O squamous cellcarcinoma.DiagnosisLEFT LOWER LIP LESION, EXCISION ([id number], ): LICHENOID ACTINICCHEILITIS. (See Microscopic Description).Electronically Signed By Jefe Perry M.D., Attending Pathologist04/06/2020 11:36:37 [facility] [place], [place], are 2 H and Estained slides, labeled [id number], with the corresponding pathology report. Microscopic DescriptionI agree with you that there is evidence of squamous hyperplasia, lichenoidchronic inflammation and no clear evidence of carcinoma. There is,however, atypia of the basal layer associated with parakeratosis andoccasional dyskeratinocytes. There is no evidence of full-thicknessatypia or invasion. 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 Thank you for letting me see this case in consultation.This report may include one or more immunohistochemical stain results thatuse analyte specific reagents. All positive and negative controls havebeen reviewed by the attending pathologist and are satisfactory. The testswere developed and their performance characteristics determined by [facility] Pathology department. They have not been cleared or approved by the USFood and Drug Administration. The FDA has determined that such clearanceor approval is not necessary. Name Value Range Interpretation Code Description [facility] Supporting Document(s) ID Date Data Source [id number] 04/01/2020 12:31:00 PM EST [facility] ([facility], ) Name Value Range Interpretation Code Description Data [facility]) Supporting Document(s) Surgical pathology study Laboratory test result [facility] ([facility], ) FINAL DIAGNOSIS Left lower lip, lesion, removal: Lichenoid actinic chelitis. Please see the scanned documentation for the full Surgical Pathology report from [facility] ([id number]). 04/06/2020 - 1325 CLINICAL DIAGNOSIS Non-healing lesion 04/04/2020 - 1409 GROSS DIAGNOSIS Received in formalin labeled "lesion left lower lip, 2-3 mm midline superficial ulceration specimen" consists of one fragment of stack-white skin measuring 0.6 x 0.3 x 0.3 cm. All in one. -SV 04/04/2020 - 1409 PRELIMINARY DIAGNOSIS 04/06/2020 - 1325 Signed CHELSIE YOON MD 04/05/2020 1011 (Prelim) Signed CHLESIE YOON MD 04/06/2020 1325 Procedure Social History No Information Vital Signs ID Date Data Source UNK Name Value Range Interpretation Code Description Data Source(s) Body temperature 96.8 [degF] 96.8 [degF] [facility] ([facility]) Body height 72 [in_i] 72 [in_i] [facility] ([facility]) 6'0" Body weight 278.25 [lb_av] 278.25 [lb_av] [facility] T ([facility]) Body mass index (BMI) [Ratio] 37.7 kg/m2 37.7 k g/m2 [facility] ([facility]) Body height 72 [in_i] 72 [in_i] [facility] ([facility]) 6'0" Body weight 260.00 [lb_av] 260.00 [lb_av] [facility] T ([facility]) Body mass index (BMI) [Ratio] 35.3 kg/m2 35.3 k g/m2 [facility] ([facility]) [facility] body weight 178 [lb_av] 178 [facility]_av[facility] Body weight 117.936 kg 117.936 kg [facility] ([facility]) Body surface area Derived from formula 2.38 m2 2.38 m2 [facility] ([facility]) Body height 72 [in_i] 72 [in_i] [facility] ([facility]) 6'0" Body weight 260.00 [lb_av] 260.00 [lb_av] [facility] T ([facility]) Body mass index (BMI) [Ratio] 35.3 kg/m2 35.3 k g/m2 [facility] ([facility]) Muir body weight 178 [lb_av] 178 [lb_av] [facility] T ([facility] ) Body weight 117.936 kg 117.936 kg [facility] ([facility]) Body surface area Derived from formula 2.38 m2 2.38 m2 [facility] ([facility], )
--- NOTE | 2021-02-26 00:58 | REPVR ---
PROCEDURE INFORMATION: Exam: CT Head Without Contrast Exam date and time: 02/25/2021 11:58 PM Age: 50 years old Clinical indication: Injury or trauma; Fall; Blunt trauma (contusions or hematomas); Consciousness not specified; Prior surgery; Surgery date: 6+ months TECHNIQUE: Imaging protocol: Computed tomography of the head without contrast. Radiation optimization: All CT scans at this facility use at least one of these dose optimization techniques: automated exposure control; mA and/or kV adjustment per patient size (includes targeted exams where dose is matched to clinical indication); or iterative reconstruction. COMPARISON: No relevant prior studies available. FINDINGS: Brain: No midline shift, mass, fluid collection, or evidence of acute hemorrhage. Previous right-sided cranioplasty per frontal, parietal, temporal sylvian, and anterior left frontal lobe encephalomalacia. Cerebral ventricles: Ex vacuo ventricular dilatation. No acute hemorrhage. Paranasal sinuses: Visualized sinuses are unremarkable. No fluid levels. Mastoid air cells: Visualized mastoid air cells are well aerated. Bones/joints: Unremarkable. No acute fracture. Soft tissues: Unremarkable. IMPRESSION: No acute intracranial abnormality. Electronically signed by: Dion Piña On 02/26/2021 00:57:49 AM
--- NOTE | 2021-02-26 00:59 | REPVR ---
PROCEDURE INFORMATION: Exam: CT Cervical Spine Without Contrast Exam date and time: 02/25/2021 11:58 PM Age: 50 years old Clinical indication: Injury or trauma; Fall; Blunt trauma TECHNIQUE: Imaging protocol: Computed tomography images of the cervical spine without contrast. Radiation optimization: All CT scans at this facility use at least one of these dose optimization techniques: automated exposure control; mA and/or kV adjustment per patient size (includes targeted exams where dose is matched to clinical indication); or iterative reconstruction. COMPARISON: 1. CR SPINE LS COMPLETE 2018-12-26 16:03 2. CR SPINE LS COMPLETE 2018-07-01 15:19 FINDINGS: Bones/joints: Normal spinal curvature, vertebral body heights, and alignment. No spinal fracture or acute subluxation. Discs/Spinal canal/Neural foramina: Diffuse degenerative disc space loss with degenerative disc osteophyte complexes, facet arthropathy, and ligamentum flavum thickening causes up to moderate spinal and foraminal stenosis greatest at before-C7. Lungs: Lung apices are normal. Soft tissues: Unremarkable. IMPRESSION: No acute vertebral fracture/subluxation. Electronically signed by: Dion Piña On 02/26/2021 00:58:40 AM
--- OUTSIDE RECORDS SUMMARY | 2021-02-26 01:12 | CCD ---
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 Role Phone Thiago Yoon Chelsie Unavailable [...] De Jesus MD Unavailable Unavailable Natalie De Jeuss MD Unavailable Unavailable Natalie DeJ esus MD Unavailable Unavailable Natalie De Jesus MD [...] De Jesus, Natalie Nguyen MD Unavailable Unavailable LohmanNikos MD Unavailable Unavailable LohmanNikos MD Unavailable Unavailable Nikos Posada MD Unavailable Unavailable Nikos Posada MD Unavailable Unavailable Nikos Posada MD Unavailable Unavailable Nikos Posada MD Unavailable Unavailable LohmanNikos MD Unavailable Unavailable LohmanNikos MD Unavailable Unavailable LohmanNikos MD Unavailable Unavailable LohmanNikos MD Unavailable Unavailable LohmanNikos larsen MD Unavailable Unavailable LohmanNikos larsen MD Unavailable Unavailable Nikos Posada MD Unavailable Unavailable LohmanNikos larsen MD Unavailable Unavailable LohmanNikos MD Unavailable Unavailable LohmanNikos MD Unavailable Unavailable LohmanNikos MD Unavailable Unavailable LohmanNikos larsen MD Unavailable Unavailable Nikos Posada MD Unavailable Unavailable Nikos Posada MD Unavailable Unavailable Nikos Posada MD Unavailable Unavailable Nikos Posada MD Unavailable Unavailable Nikos Posada MD Unavailable Unavailable Nikos Posada MD Unavailable Unavailable LohmanNikos MD Unavailable Unavailable Nikos Posada MD Unavailable [...] Unavailable Unavailable Parish Gates MD Unavailable Unavailable Vaneenenaam, Parish Zimmer [...] is protected by Article 27-F of the [facility] Public Health law. If you continue you may have access to information: Regarding HIV / AIDS; Provided by facilities licensed or operated by the [facility] Office of Mental Health; or Provided by the [facility] Office for People With Developmental Disabilities. If such information is present, then the following [facility] mandated warning applies: This information has been [...] law may result in a fine or group home sentence or both. A general authorization for the release of medical or other information is NOT sufficient authorization for further disc losure. Family History Family Member Name Family Member Gender Family Member Status Date o f Status Description Data Source(s) Unknown Unknown Problem [facility] Unknown Unknown Problem [facility] ([facility] Unknown Male Problem [facility] ([facility]) Encounters Encounter Providers Location Date Indications Data Source(s ) OFFICE OUTPATIENT VISIT 15 MINUTES Attender: Patrick De Jesus MD Phys ical Therapy 10/03/2020 02:45:00 PM EDT [facility] ([facility]) OFFICE OUTPATIENT VISIT 15 MINUTES Attender: Parish babcock MD Physical Therapy 05/02/2020 12:15:00 PM EST [facility] ([facility]) Outpatient Admitter: Chelsie Myrickerrer: Chelsie Yoon 04/05/2020 12:00:00 AM EST Unspecified lesions of oral mucosa [facility] Unspecified lesions of oral mucosa Outpatient Attender: Nikos Dietz/Swetha/Romain/Juanita russell 01/19/2020 01:30:00 PM EDT [facility] ([facility]) Medications Medication Brand Name Start Date Product Form Dose Route Admi nistrative Instructions Pharmacy Instructions Status Indications Reaction Description Data Source(s) Amoxicillin 500 MG / Clavulanate 125 MG Oral Tablet [Augment in] Augmentin 04/01/2020 12:00:00 AM EST ORAL active MEDENT ([facility], ) Insurance Providers Payer name Policy type / Coverage type Policy ID Covered democrat ID Covered democrat's relationship to oneal Policy Oneal Plan Information MVP [facility] MCR MGD CARE [id number] [facility] [id number] [id number] Patient [id number] COMMERCIAL MISC [id number] Patient [id number] [facility] POS EPO INDEM [id number] SELF [id number] MEDICARE PART A [id number] Patient [id number] MEDICARE [id number] SELF [id number] A Acc/Dol ([place] () Workers Compensation [id number] 2.16.840.1.406011.3.227.99.991.43391.0 Self [id number] Acc/[place]ol [place] () Workers Compensation [id number] MRN.[id number] Self [id number] Acc/Dol [place] () Workers Compensation [id number] MRN.[id number] Self [id number] Acc/[place]ol [place] () Workers Compensation [id number] 2.16.840.1.819251.3.227.99.991.89597.0 Self [id number] Acc/[place]ol [place] () Workers Compensation [id number] 2.16.840.1.380079.3.227.99.991.66865.0 Self [id number] Acc/Dol [place] () Workers Compensation [id number] 2.16.840.1.128918.3.227.99.991.73010.0 Self [id number] Acc/Dol [place] () Workers Compensation [id number] 2.16.840.1.711339.3.227.99.991.34950.0 Self [id number] Acc/Dol [place] () Workers Compensation [id number] 2.16.840.1.193729.3.227.99.991.64179.0 Self 0 [id number] Acc/Dol [place] () Workers Compensation [id number] 2.16.840.1.792796.3.227.99.991.06523.0 Self [id number] [place] [employer] () Workers Compensation [id number] MRN.[id number] Self [id number] Acc/Dol [place] () Workers Compensation [id number] 2.16.840.1.514508.3.227.99.991.82097.0 Self [id number] Acc/Dol ([place] () Workers Compensation [id number] 2.16.840.1.729168.3.227.99.991.42745.0 Self [id number] Acc/Dol [place] () Workers Compensation [id number] 2.16.840.1.933633.3.227.99.991.35501.0 Self [id number] Acc/Dol [place] () Workers Compensation [id number] 2.16.840.1.757354.3.227.99.991.70009.0 Self [id number] [id number] Acc/Dol ([place] () Workers Compensation [id number] MRN.[id number] Self [id number] Acc/Dol [place] () Workers Compensation [id number] 2.16.840.1.455303.3.227.99.991.37512.0 Self [id number] Acc/Dol [place] () Workers Compensation [id number] MRN.[id number] Self [id number] Acc/Dol [place] () Workers Compensation [id number] 2.16.840.1.506252.3.227.99.991.91069.0 Self [id number]-[id number] [id number] Acc/Dol ( Labor) () Workers Compensation [id number] 2.16.840.1.732118.3.227.99.991.12153.0 Self [id number]-[id number] [id number] Acc/Dol ( Labor) () Workers Compensation [id number] 2.16.840.1.255027.3.227.99.991.33255.0 Self [id number] [id number] Acc/Dol ( Labor) () Workers Compensation [id number] 2.16.840.1.339370.3.227.99.991.37532.0 Self [id number]-[id number] [id number] Acc/Dol ( Labor) () Workers Compensation [id number] 2.16.840.1.010701.3.227.99.991.23215.0 Self [id number]-2941-1358-7775 [id number] Acc/Dol ( Labor) () Workers Compensation [id number]-[id number] MRN.[id number]-[id number]-[id number] Self [id number] Acc/Dol ( Labor) () Workers Compensation [id number] MRN.[id number]-[id number] Self [id number] Acc/Dol ( Labor) () Workers Compensation [id number]-[id number] 2.16.840.1.947929.3.227.99.991.09282.0 Self 7m1qwaa8-b72j-9117-4984-5507 [id number] Acc/Dol ( Labor) () Workers Compensation [id number] 2.16.840.1.341664.3.227.99.991.71074.0 Self [id number]-[id number] [id number] Acc/Dol ( Labor) () Workers Compensation [id number]-[id number] 2.16.840.1.845169.3.227.99.991.33189.0 Self 4cs0mpk9-e02i-2082-3952-3238 [id number] Acc/Dol ([place] ([place]) Workers Compensation [id number]-[id number] 2.0.1.467402.3.227.99.991.63374.0 Self [id number]-[id number] [id number] MVP H [id number] Self [id number] MEDICARE A [id number] Self [id number] A MEDICARE A [id number] Self [id number] [place] Med[place] Part B [id number] ..1.725920.3.227.99.991.82019.0 Self 1 [id number] [place] Med[place]ap Part B [id number] MRN.[id number] Self [id number] MVP (pr) Commercial [id number] MRN.991.1pic2i57-7g9b-175j-6 e7a-[id number] Family Dependent [id number] [place] Med[place]ap Part B [id number] MRN.991.8jql5w72-8c7v-184o-1l3g-[id number] Self [id number] MVP (pr) Commercial [id number] MRN.991.3gjt3j04-6d9r-603q-6 w4h-690972b634tj Family Dependent [id number] [place] Medigap Part B [id number] .0.1.653856.3.227.99.991.98406.0 Self 1 [id number] MVP (pr) Commercial [id number] 2.0.1.229028.3.227.99.9 91.88024.0 Family Dependent [id number] [place] Medigap Part B [id number] 2.0.1.196626.3.227.99.991.17498.0 Self 1 [id number] MVP (pr) Commercial [id number] 2..840.1.141115.3.227.99.9 91.66937.0 Family Dependent [id number] [place] Medigap Part B [id number] 2.840.1.468822.3.227.99.991.13623.0 Self 1 [id number] MVP (pr) Commercial [id number] 2.840.1.748321.3.227.99.9 91.50221.0 Family Dependent [id number] [place] Medigap Part B [id number] 2.840.1.143800.3.227.99.991.16936.0 Self 1 [id number] MVP (pr) Commercial [id number] 2.840.1.126166.3.227.99.9 91.34472.0 Family Dependent [id number] [place] Medigap Part B [id number] .840.1.938323.3.227.99.991.26253.0 Self 1 [id number] MVP (pr) Commercial [id number] 2.840.1.074512.3.227.99.9 91.40469.0 Family Dependent [id number] [place] Medigap Part B [id number] 840.1.411583.3.227.99.991.45470.0 Self 1 [id number] MVP (pr) Commercial [id number] .840.1.717422.3.227.99.9 91.19038.0 Family Dependent [id number] MVP (pr) Commercial [id number] .840.1.619538.3.227.99.9 91.04803.0 Family Dependent [id number] EXCELLUS C [id number] Spouse [id number] OTHER B [id number] Self [id number] OTHER B [id number] Self [id number] MEDICARE [id number] SP [id number] A MVP Commercial [id number] .1.736176.3.227.99.1 767.4531.0 Family Dependent [id number] Medicare Dme Supplies Medigap Part B [id number] .1.353761.3.227.99.991.94030.0 Self 1 [id number] Medicare Dme Supplies Medigap Part B [id number] MRN.991.5lrw7d94-2a7r-[id number] Self [id number] [facility] [id number] SP [id number] [facility] P [id number] S [id number] [facility] Commercial [id number] MRN.1767.473l7khl-[id number]- [id number] Family Dependent [id number] Medicare Natl Gov't Servi Medigap Part B [id number] MRN.1767.408k8wwg-[id number] Self [id number] Medicare Dme Supplies Medigap Part B [id number] MRN.[id number] Self [id number] [facility] [id number] WI2 [id number] [facility] FEDERAL [id number] WI2 [id number] 0 [facility] O [id number] S [id number] MEDICARE C [id number] S [id number] [facility] [id number] SP [id number] [facility] FEDERAL EMPLOYEE PROGRAM [id number] WI2 [id number] P HMO O [id number] U [id number] 001 [id number] S [id number] MEDICARE C [id number] S [id number] A P Commercial [id number] .1.780623.3.227.99.1767.4531. 0 Self [id number] [facility] Commercial [id number] 2.0.1.101463.3.227.99.1767.4531. 0 Self [id number] NATALIE PLATA [id number] SP [id number] [facility] Commercial [id number] Self SELF PAY UNAVAILABLE SELF UNAVAILA BLE PROGRESSIVE CO NO FAULT [id number] SP [id number] 'S ADMINISTRATION [id number] SP [id number] Medicare Dme Supplies Medigap Part B [id number] 2.0.1.117290.3.227.99.991.54535.0 Self 1 [id number] MEDICARE [id number] SP [id number] [facility] [id number] SP [id number] Medicare Medigap Part B [id number] 2.0.1.764707.3.227.99.936. 02882.0 Self [id number] [facility] Health Plans Commercial [id number] 01 2.0.1.714792.3.227. 99.936.96752.0 Family Dependent [id number] 01 [facility] Commercial [id number] 2..1.965063.3.227.99.1767.4531. 0 Self [id number] Medicare Dme Supplies Medigap Part B [id number] 2.0.1.135279.3.227.99.991.02069.0 Self 1 [id number] Medicare Natl Gov't Servi Medicare Primary [id number] 2.0.1.197172.3.227.99.1767.4531.0 Self 5 [id number] [employer] O [id number] S [id number] Medicare Dme Supplies Medigap Part B [id number] 2.0.1.879708.3.227.99.991.07204.0 Self 1 [id number] [facility] Commercial [id number] 2.0.1.701822.3.227.99.1767.4531. 0 [facility] [id number] Problems, Conditions, and Diagnoses Code Display Name Description Problem Type Effective Dates Data Source(s) K13.70 Unspecified lesions of oral mucosa Unspecified l esions of oral mucosa Diagnosis 04/05/2020 02:32:00 PM [facility] [id number] Essential hypertension Essential hypertension Problem 01/19/2020 12:00:00 AM EDT [facility] ([facility], ) Surgeries/Procedures Procedure Description Date Indications Data Source(s) OFFICE OUTPATIENT VISIT 15 MINUTES 10/03/2020 12:00:00 AM EDT [facility] ([facility]) X-Ray Hip Unilateral With Pelvis 2-3 Views 05/02/2020 12:00:00 AM EST [facility] ([facility]) OFFICE OUTPATIENT VISIT 15 MINUTES 05/02/2020 12:00:00 AM EST [facility] ([facility]) Excise Benign Lesion <.6CM Face/Ear/Eyelid/Nose/Lip/Mucous Memb 04/01/2020 12:00:00 AM EST [facility] ([facility] Results ID Date Data Source [id number] 05/02/2020 02:37:00 PM EST [facility] ([facility]) Name Value Range Interpretation Code Description Data Shazia rce(s) Supporting Document(s) Erythrocyte sedimentation rate by Westergren method 7 mm/hr 0-[facility] C reactive protein [Mass/volume] in Serum or Plasma by High sensitivity method Laboratory test result 0.00-0.30 [facility] ([facility]) ID Date Data Source [id number] 05/02/2020 02:37:00 PM EST [facility] ([facility]) Name Value Range Interpretation Code Description Data Shazia rce(s) Supporting Document(s) White Blood Count 6.3 10 4.0-10.0 [facility] ([facility]) Red Blood Count 5.25 10 4.30-6.10 [facility] ([facility]) Hematocrit 47.3 % 42.0-52.0 [facility] ([facility] ) Hemoglobin 15.5 g/dL 13.5-17.5 [facility] ([facility] ) Mean Corpuscular Volume 90.1 fl 80.0-96.0 M EDENT ([facility]) Mean Corpuscular Hemoglobin 29.5 pg 27.0-33.0 [facility] ([facility]) Mean Corpuscular HGB Conc 32.8 g/dL 32.0-36.5 [facility] ([facility]) Platelet Count, Automated 190 10 150-450 [facility] ([facility]) Neutrophils % 59.0 % 36.0-66.0 [facility] ([facility] Red Cell Distribution Width 12.3 % 11.5-14.5 [facility] ([facility]) [place] % 10.4 % 0.0-5.0 [facility] Lymph % 28.3 % 24.0-44.0 [facility] Baso % 1.0 % 0.0-1.0 [facility] ([facility] Eos % 1.1 % 0.0-3.0 [facility]) Immature Granulocyte % 0.2 % 0-3.0 [facility] ([facility]) Neutrophils # 3.7 10 1.5-8.5 [facility] ([facility]) Nucleated Red Blood Cell % 0.0 % 0-0 MED [facility] ([facility]) Lymph # 1.8 10 1.5-5.0 [facility] ([facility]) [place] # 0.7 10 0.0-0.8 [facility] ([facility]) Eos # 0.1 10 0.0-0.5 [facility] ([facility]) Baso # 0.1 10 0.0-0.2 [facility] ([facility]) ID Date Data Source [id number] 04/06/2020 11:36:00 AM [facility] Surgical Pathology ReportName: Demarcus CRONINAna AmaraMRN: [id number] Number: [id number] Date: 04/05/2020 00:00Received Date: 04/05/2020 14:36Physician(s): CHELSIE YOON MD VYAS, SHIKHAR G,CASSIEpecimen(s) ReceivedA: Slides received for consultation, ZOILAClinical HistoryLip lesion, removal. Non-healing lesion. No previous relevantdiagnosis/other pertinent information. Your opinion to R/O squamous cellcarcinoma.DiagnosisLEFT LOWER LIP LESION, EXCISION ([id number], ): LICHENOID ACTINICCHEILITIS. (See Microscopic Description).Electronically Signed By Jefe Perry M.D., Attending Pathologist04/06/2020 11:36:37 Gross DescriptionReceived from [facility] in [place], [place], are 2 H and Estained slides, [...] developed and their performance characteristics determined by [facility] Pathology department. They have not been cleared or approved by the USFood and Drug Administration. The FDA has determined that such clearanceor approval is not necessary. Name Value Range Interpretation Code Description Data [facility](s) Supporting Document(s) ID Date Data Source [id number] 04/01/2020 12:31:00 PM EST [facility] ([facility], ) Name Value Range Interpretation Code Description Data [facility](s) Supporting Document(s) Surgical pathology study Laboratory test result [facility] ([facility], ) FINAL DIAGNOSIS Left lower lip, lesion, removal: Lichenoid actinic chelitis. Please see the scanned documentation for the full Surgical Pathology report from [facility] ([id number]). 04/06/2020 - 1325 CLINICAL DIAGNOSIS Non-healing lesion 04/04/2020 - 1409 GROSS DIAGNOSIS Received in formalin labeled "lesion left lower lip, 2-3 mm midline superficial ulceration specimen" consists of one fragment of stack-white skin measuring 0.6 x 0.3 x 0.3 cm. All in one. -SV 04/04/2020 - 1409 PRELIMINARY DIAGNOSIS 04/06/2020 - 1325 Signed CHELSIE YOON MD 04/05/2020 1011 (Prelim) Signed CHELSIE YOON MD 04/06/2020 1325 Procedure Social History No Information Vital Signs ID Date Data Source UNK Name Value Range Interpretation Code Description Data Source(s) Body temperature 96.8 [degF] 96.8 [degF] [facility] ([facility]) Body height 72 [in_i] 72 [in_i] [facility] ([facility]) 6'0" Body weight 278.25 [lb_av] 278.25 [lb_av] MEDEN T ([facility]) Body mass index (BMI) [Ratio] 37.7 kg/m2 37.7 k g/m2 [facility] ([facility]) Body height 72 [in_i] 72 [in_i] [facility] 6'0" Body weight 260.00 [lb_av] 260.00 [lb_av] MEDEN T ([facility]) Body mass index (BMI) [Ratio] 35.3 kg/m2 35.3 k g/m2 [facility] ([facility]) [place] body weight 178 [lb_av] 178 [lb_av] MEDEN T ([facility]) Body weight 117.936 kg 117.936 kg [facility] ([facility]) Body surface area Derived from formula 2.38 m2 2.38 m2 [facility] ([facility]) Body mass index (BMI) [Ratio] 35.3 kg/m2 35.3 k g/m2 [facility] ([facility]) [place] body weight 178 [lb_av] 178 [lb_av] MEDEN T ([facility]) Body weight 117.936 kg 117.936 kg [facility] ([facility]) Body surface area Derived from formula 2.38 m2 2.38 m2 [facility] ([facility]) Body height 72 [in_i] 72 [in_i] MONICA ([facility]) 6'0" Body weight 260.00 [lb_av] 260.00 [lb_av] EDDIE [place] ([facility])
[2021-02-26] MEDS ORDERED: LIDOCAINE 1% MDV 20ML VIAL SC ONE (01:25)
== END 2021-02-26 02:04 | disposition home or self-care (01) ==
LOC: M ED 23:26
DX: S01.322A Laceration with foreign body of left ear, initial encounter (principal); W01.198A Fall on same level from slipping, tripping and stumbling with subsequent striking against other object, initial encounter; Y92.009 Unspecified place in unspecified non-institutional (private) residence as the place of occurrence of the external cause; Y93.9 Activity, unspecified; Y99.9 Unspecified external cause status; Z88.6 Allergy status to analgesic agent; Z88.8 Allergy status to other drugs, medicaments and biological substances; Z79.899 Other long term (current) drug therapy; Z79.82 Long term (current) use of aspirin

== ENCOUNTER → 2022-01-10 | Outpatient (CLI) | payer BC, MEDICARE, OTHER ==
[~2022-01-10] MED LIST changes: +SIMV-253 PO; -ZOCO20TA PO
[2022-01-10 18:43] LABS: HEMATOCRIT 46.8 % (42.0-52.0); HEMOGLOBIN 15.8 g/dl (13.5-17.5); MEAN CORPUSCULAR HEMOGLOBIN 29.9 pg (27.0-33.0); MEAN CORPUSCULAR HGB CONC 33.8 g/dl (32.0-36.5); MEAN CORPUSCULAR VOLUME 88.6 fl (80.0-96.0); PLATELET COUNT, AUTOMATED 192 10^3/uL (150-450); RED BLOOD COUNT 5.28 10^6/uL (4.30-6.10); WHITE BLOOD COUNT 6.4 10^3/uL (4.0-10.0)
[2022-01-10 19:06] LABS: HEMOGLOBIN A1c 5.5 %
[2022-01-10 19:28] LABS: ALT/SGPT 23 U/L (12-78); BILIRUBIN,TOTAL 1.8 MG/DL (0.2-1.0); BLOOD UREA NITROGEN 8 MG/DL (7-18); CARBON DIOXIDE LEVEL 28 MEQ/L (21-32); CHLORIDE LEVEL 103 MEQ/L (98-107); CHOLESTEROL LEVEL 116 MG/DL (<200); CHOLESTEROL RISK RATIO 2.071 (<5); CREATININE FOR GFR 0.79 MG/DL (0.70-1.30); GLOMERULAR FILTRATION RATE > 60.0 (>56); GLUCOSE, FASTING 105 MG/DL (70-100); HDL CHOLESTEROL 56 MG/DL (>40); NON-HDL-C 60 MG/DL; POTASSIUM SERUM 4.5 MEQ/L (3.5-5.1); SODIUM LEVEL 135 MEQ/L (136-145); TRIGLYCERIDES LEVEL 83 MG/DL (<150)
[2022-01-10 19:29] LABS: ALBUMIN 4.4 GM/DL (3.2-5.2); LDL CHOLESTEROL 43 MG/DL (<100); TOTAL PROTEIN 7.9 GM/DL (6.4-8.2); URIC ACID 5.5 MG/DL (3.5-7.2)
[2022-01-10 19:42] LABS: TOTAL 25(OH) VITAMIN D 50.4 NG/ML (30.0-100.0)
[2022-01-10 19:48] LABS: APPEARANCE, URINE MANUAL CLEAR (CLEAR); COLOR, URINE MANUAL YELLOW (YELLOW)
[2022-01-10 19:49] LABS: SPECIFIC GRAVITY,URINE MANUAL 1.005 (1.002-1.035)
[2022-01-10 19:56] LABS: BILIRUBIN, URINE MANUAL NEGATIVE (NEGATIVE); BLOOD URINE MANUAL NEGATIVE (NEGATIVE); GLUCOSE, URINE (UA) MANUAL NEGATIVE (NEGATIVE); KETONE, URINE MANUAL NEGATIVE (NEGATIVE); LEUKOCYTE ESTERASE, URINE MAN NEGATIVE (NEGATIVE); NITRITE, URINE MANUAL NEGATIVE (NEGATIVE); PROTEIN, URINE MANUAL NEGATIVE (NEGATIVE); UROBILINOGEN, URINE MANUAL NORMAL (NORMAL)
== END ==
LOC: M WUC 12:54
PROVIDERS: ATTEND Internal Medicine
DX: Z00.00 Encounter for general adult medical examination without abnormal findings (principal); Z79.899 Other long term (current) drug therapy

== ENCOUNTER → 2022-06-20 | Outpatient (CLI) | payer BC, MEDICARE, OTHER ==
[~2022-06-20] MED LIST changes: +CLOP75TA99 PO; -PLAV1TAB2 PO
[2022-06-20 17:36] LABS: HEMOGLOBIN 15.4 g/dl (13.5-17.5); MEAN CORPUSCULAR HEMOGLOBIN 29.8 pg (27.0-33.0); MEAN CORPUSCULAR HGB CONC 32.8 g/dl (32.0-36.5); MEAN CORPUSCULAR VOLUME 91.1 fl (80.0-96.0); PLATELET COUNT, AUTOMATED 178 10^3/uL (150-450); RED BLOOD COUNT 5.16 10^6/uL (4.30-6.10); WHITE BLOOD COUNT 5.4 10^3/uL (4.0-10.0)
[2022-06-20 18:15] LABS: HEMOGLOBIN A1c 5.2 % (4.0-6.0)
[2022-06-20 18:18] LABS: ALBUMIN 4.2 G/DL (3.2-5.2); ALKALINE PHOSPHATASE 67 U/L (46-116); ALT/SGPT 23 U/L (7.0-40); AST/SGOT 24 U/L (<34); BLOOD UREA NITROGEN 10 MG/DL (9-23); CALCIUM LEVEL 9.4 MG/DL (8.5-10.1); CARBON DIOXIDE LEVEL 30 MMOL/L (20-31); CHLORIDE LEVEL 103 MMOL/L (98-107); CHOLESTEROL LEVEL 128 MG/DL (<200); CHOLESTEROL RISK RATIO 2.53 (<5); GLOMERULAR FILTRATION RATE > 60.0 (>56); GLUCOSE, FASTING 122 MG/DL (60-100); HDL CHOLESTEROL 50.5 MG/DL (>40); LDL CHOLESTEROL 62.5 MG/DL (<100); NON-HDL-C 77.5 MG/DL; POTASSIUM SERUM 3.9 MMOL/L (3.5-5.1); PROSTATIC SPECIFIC AG MONITOR 0.34 NG/ML (< 4.00); SODIUM LEVEL 139 MMOL/L (136-145); TOTAL 25(OH) VITAMIN D 43.1 NG/ML (20.0-100.0); TOTAL PROTEIN 6.9 G/DL (5.7-8.2); TRIGLYCERIDES LEVEL 75 MG/DL (<150)
[2022-06-20 18:19] LABS: APPEARANCE, URINE HAZY (CLEAR); BACTERIA, URINE AUTO NEGATIVE (NEGATIVE); BILIRUBIN, URINE AUTO NEGATIVE (NEGATIVE); BLOOD, URINE BLOOD 3+ (NEGATIVE); COLOR, URINE YELLOW (YELLOW); GLUCOSE, URINE (UA) AUTO NEGATIVE (NEGATIVE); KETONE, URINE AUTO NEGATIVE (NEGATIVE); LEUKOCYTE ESTERASE, URINE AUTO NEGATIVE (NEGATIVE); NITRITE, URINE AUTO NEGATIVE (NEGATIVE); PROTEIN, URINE AUTO NEGATIVE (NEGATIVE); RBC, URINE AUTO 6 /HPF (0-3); SPECIFIC GRAVITY URINE AUTO 1.005 (1.002-1.035); SQUAMOUS EPITHELIAL CELL UR AU 0 /HPF (0-6); UROBILINOGEN, URINE AUTO 0.2 mg/dL (0.0-2.0); WBC, URINE AUTO 1 /HPF (0-3)
== END ==
LOC: M WUC 11:00
PROVIDERS: ATTEND Internal Medicine
DX: R73.03 Prediabetes (principal); Z86.73 Personal history of transient ischemic attack (TIA), and cerebral infarction without residual deficits; Z13.9 Encounter for screening, unspecified

== ENCOUNTER → 2022-09-06 | Outpatient (CLI) | payer OTHER | LOC: M WUC 15:31 | PROVIDERS: ATTEND Physician Assistant | DX: S20.212A Contusion of left front wall of thorax, initial encounter (principal) ==

== ENCOUNTER 2022-09-30 12:18 | Emergency (ER) | payer BC, MEDICARE, OTHER ==
[~2022-09-30] VITALS: Ht 182.9 cm; Wt 130.0 kg
[~2022-09-30 12:18] MED LIST changes: -ROPI0.5T3 PO; +ROPI0.5T33 PO
[2022-09-30] MEDS ORDERED: traMADol 50 MG TAB PO ONE (16:45)
[2022-09-30] MEDS ORDERED: PRED20TA PO (17:52)
[2022-09-30 18:06] VITALS: BP 131/81; TEMP 97.4; O2SAT 98
== END 2022-09-30 18:00 | disposition home or self-care (01) ==
LOC: M ED 12:18
DX: M25.552 Pain in left hip (principal); I10 Essential (primary) hypertension; E78.5 Hyperlipidemia, unspecified; F41.9 Anxiety disorder, unspecified; F32.A Depression, unspecified; K21.9 Gastro-esophageal reflux disease without esophagitis; G40.909 Epilepsy, unspecified, not intractable, without status epilepticus; Z86.79 Personal history of other diseases of the circulatory system; Z87.442 Personal history of urinary calculi; Z88.5 Allergy status to narcotic agent; Z88.8 Allergy status to other drugs, medicaments and biological substances; Z79.82 Long term (current) use of aspirin; Z79.811 Long term (current) use of aromatase inhibitors; Z79.52 Long term (current) use of systemic steroids; Z79.899 Other long term (current) drug therapy

== ENCOUNTER → 2022-10-20 | Outpatient (CLI) | payer BC, MEDICARE ==
[~2022-10-20] MED LIST changes: +PRED20TA PO
== END ==
LOC: M RAD 12:08
PROVIDERS: ATTEND Physician Assistant
DX: M25.552 Pain in left hip (principal); Z96.642 Presence of left artificial hip joint; M51.26 Other intervertebral disc displacement, lumbar region

== ENCOUNTER 2023-04-01 14:13 | Emergency (ER) | payer BC, MEDICARE, OTHER ==
[~2023-04-01] VITALS: Ht 182.9 cm; Wt 118.2 kg
[2023-04-01 20:08] VITALS: BP 124/68; TEMP 98.2; O2SAT 98
== END 2023-04-01 20:09 | disposition home or self-care (01) ==
LOC: M ED 14:13
DX: S70.02XA Contusion of left hip, initial encounter (principal); W19.XXXA Unspecified fall, initial encounter; K21.9 Gastro-esophageal reflux disease without esophagitis; E78.5 Hyperlipidemia, unspecified; M54.50 Low back pain, unspecified; F41.9 Anxiety disorder, unspecified; F32.A Depression, unspecified; G40.909 Epilepsy, unspecified, not intractable, without status epilepticus; Z87.442 Personal history of urinary calculi; Z88.5 Allergy status to narcotic agent; Z88.8 Allergy status to other drugs, medicaments and biological substances; Z87.820 Personal history of traumatic brain injury; Y92.009 Unspecified place in unspecified non-institutional (private) residence as the place of occurrence of the external cause; Y93.9 Activity, unspecified; Y99.9 Unspecified external cause status; Z79.82 Long term (current) use of aspirin; Z79.810 Long term (current) use of selective estrogen receptor modulators (SERMs); Z79.899 Other long term (current) drug therapy

== ENCOUNTER 2023-04-14 22:51 | Inpatient (IN) | payer OTHER, MEDICARE ==
[~2023-04-14] VITALS: Ht 182.9 cm; Wt 129.6 kg
[2023-04-15] MEDS ORDERED: oxyCODONE 5MG TAB PO ONE (03:10)
[2023-04-15 05:52] LABS: BASO # 0.1 10^3/uL (0.0-0.2); BASO % 0.5 % (0.0-1.0); EOS % 0.2 % (0.0-3.0); HEMATOCRIT 43.3 % (42.0-52.0); LYMPH # 1.4 10^3/uL (1.5-5.0); LYMPH % 14.7 % (24.0-44.0); MEAN CORPUSCULAR HEMOGLOBIN 30.4 pg (27.0-33.0); MEAN CORPUSCULAR HGB CONC 34.6 g/dl (32.0-36.5); MEAN CORPUSCULAR VOLUME 87.7 fl (80.0-96.0); MONO % 10.6 % (2.0-8.0); NEUTROPHILS % 73.7 % (36.0-66.0); PLATELET COUNT, AUTOMATED 249 10^3/uL (150-450); RED BLOOD COUNT 4.94 10^6/uL (4.30-6.10); WHITE BLOOD COUNT 9.5 10^3/uL (4.0-10.0)
[2023-04-15 06:10] LABS: BLOOD UREA NITROGEN 11 MG/DL (9-23); CALCIUM LEVEL 9.6 MG/DL (8.5-10.1); CARBON DIOXIDE LEVEL 24 MMOL/L (20-31); CHLORIDE LEVEL 106 MMOL/L (98-107); CREATININE FOR GFR 0.69 MG/DL (0.70-1.30); GLOMERULAR FILTRATION RATE > 60.0 (>56); GLUCOSE, FASTING 97 MG/DL (60-100); POTASSIUM SERUM 4.2 MMOL/L (3.5-5.1); SODIUM LEVEL 138 MMOL/L (136-145)
[2023-04-15 06:35] LABS: RSV AMPLIFICATION NEGATIVE (NEGATIVE)
[2023-04-15] MEDS ORDERED: CALC1TAB49 PO (06:51)
[2023-04-15] MEDS ORDERED: LORA-622 PO (06:51)
[2023-04-15] MEDS ORDERED: QUET100T2 PO (06:51)
[2023-04-15] MEDS ORDERED: LEVE250T5 PO (06:51)
[2023-04-15] MEDS ORDERED: VITA1CHW8 PO (06:51)
[2023-04-15] MEDS ORDERED: POTA10808 PO (06:51)
[2023-04-15] MEDS ORDERED: OMEP40CA5 PO (06:51)
[2023-04-15] MEDS ORDERED: ACYC1TAB PO (06:51)
[2023-04-15] MEDS ORDERED: BACL10TA2 PO (06:51)
[2023-04-15] MEDS ORDERED: HOME MED LIST COMPLETE! XX SCH (06:55)
[2023-04-15] MEDS ORDERED: MORPHINE 4 MG/ML 1ML VIAL IV ONE (09:15)
[2023-04-15] MEDS: levETIRAcetam 250MG TABLET (KEPPRA) PO SCH ×2 (11:40→20:23)
[2023-04-15] MEDS: ASPIRIN 81MG CHEW TABLET PO SCH (11:40)
[2023-04-15] MEDS: QUEtiapine FUMARATE 100 MG TAB PO SCH ×2 (11:41→20:23)
[2023-04-15] MEDS: BACLOFEN 10 MG TAB PO SCH ×3 (11:41→20:24)
[2023-04-15] MEDS: MAGNESIUM OXIDE 400MG TAB (MAG-OX) PO SCH ×2 (11:41→20:23)
[2023-04-15] MEDS: atenoloL 25 MG TAB PO SCH ×2 (11:41→20:24)
[2023-04-15] MEDS ORDERED: MULT-90 PO (12:21)
[2023-04-15] MEDS ORDERED: ROSU40TA4 PO (12:21)
[2023-04-15] MEDS: rOPINIRole 0.25 MG TAB(REQUIP) PO SCH ×2 (13:36→20:24)
[2023-04-15] MEDS ORDERED: ONDANSETRON 4MG 2ML VIAL IV PRN (13:50)
[2023-04-15] MEDS: CLOPIDOGREL 75 MG TAB PO SCH (14:40)
[2023-04-15] MEDS: ROSUVASTATIN 10 MG TAB (CRESTOR) PO SCH (14:41)
[2023-04-15] MEDS: OMEPRAZOLE 20MG CAP PO SCH (14:41)
[2023-04-15] MEDS: oxyCODONE 5MG TAB PO SCH ×2 (14:41→22:21)
[2023-04-15 15:10] VITALS: BP 150/88; TEMP 97.9; O2SAT 98
[2023-04-15] MEDS: KETOROLAC 30 MG/ML 1ML VIAL IV SCH ×2 (16:40→18:17)
[2023-04-15 20:02] VITALS: BP 120/79; TEMP 98.2; O2SAT 95
[2023-04-15] MEDS: MULTIVITAMINS/MINERALS THERAP 1 TAB PO SCH (20:23)
[2023-04-16] MEDS: KETOROLAC 30 MG/ML 1ML VIAL IV SCH ×3 (01:14→17:02)
[2023-04-16] MEDS ORDERED: oxyCODONE 5MG TAB PO PRN ×2 (01:55)
[2023-04-16] MEDS ORDERED: MORPHINE 2 MG/ML 1ML VIAL IV ONE (03:00)
[2023-04-16 05:10] VITALS: BP 117/71; TEMP 97.5; O2SAT 95
[2023-04-16] MEDS: oxyCODONE 5MG TAB PO SCH ×2 (05:44→20:44)
[2023-04-16 06:34] LABS: BASO % 0.6 % (0.0-1.0); EOS # 0.1 10^3/uL (0.0-0.5); EOS % 1.5 % (0.0-3.0); HEMATOCRIT 40.1 % (42.0-52.0); HEMOGLOBIN 13.6 g/dl (13.5-17.5); LYMPH # 1.7 10^3/uL (1.5-5.0); LYMPH % 25.8 % (24.0-44.0); MEAN CORPUSCULAR HEMOGLOBIN 30.4 pg (27.0-33.0); MEAN CORPUSCULAR HGB CONC 33.9 g/dl (32.0-36.5); MEAN CORPUSCULAR VOLUME 89.7 fl (80.0-96.0); MONO % 15.8 % (2.0-8.0); NEUTROPHILS # 3.7 10^3/uL (1.5-8.5); NEUTROPHILS % 56.1 % (36.0-66.0); PLATELET COUNT, AUTOMATED 204 10^3/uL (150-450); RED BLOOD COUNT 4.47 10^6/uL (4.30-6.10); WHITE BLOOD COUNT 6.6 10^3/uL (4.0-10.0)
[2023-04-16 06:49] LABS: BLOOD UREA NITROGEN 15 MG/DL (9-23); CALCIUM LEVEL 9.1 MG/DL (8.5-10.1); CARBON DIOXIDE LEVEL 26 MMOL/L (20-31); CHLORIDE LEVEL 105 MMOL/L (98-107); CREATININE FOR GFR 0.72 MG/DL (0.70-1.30); GLOMERULAR FILTRATION RATE > 60.0 (>56); GLUCOSE, FASTING 89 MG/DL (60-100); POTASSIUM SERUM 3.5 MMOL/L (3.5-5.1); SODIUM LEVEL 138 MMOL/L (136-145)
[2023-04-16] MEDS: ASPIRIN 81MG CHEW TABLET PO SCH (09:40)
[2023-04-16] MEDS: VITAMIN D 1,000 INTERNATIONAL UNITS TABLET PO SCH (09:40)
[2023-04-16] MEDS: BACLOFEN 10 MG TAB PO SCH ×3 (09:40→20:43)
[2023-04-16] MEDS: MULTIVITAMINS/MINERALS THERAP 1 TAB PO SCH ×2 (09:40→20:46)
[2023-04-16] MEDS: QUEtiapine FUMARATE 100 MG TAB PO SCH ×2 (09:40→20:44)
[2023-04-16] MEDS: rOPINIRole 0.25 MG TAB(REQUIP) PO SCH ×2 (09:40→20:46)
[2023-04-16] MEDS: MAGNESIUM OXIDE 400MG TAB (MAG-OX) PO SCH ×2 (09:41→20:46)
[2023-04-16] MEDS: CLOPIDOGREL 75 MG TAB PO SCH (09:41)
[2023-04-16] MEDS: ROSUVASTATIN 10 MG TAB (CRESTOR) PO SCH (09:41)
[2023-04-16] MEDS: levETIRAcetam 250MG TABLET (KEPPRA) PO SCH ×2 (09:41→20:44)
[2023-04-16] MEDS: OMEPRAZOLE 20MG CAP PO SCH (09:41)
[2023-04-16] MEDS: atenoloL 25 MG TAB PO SCH ×2 (09:42→20:46)
[2023-04-16] MEDS: ENOXAPARIN 40MG/0.4ML SYRINGE (J1650 PER 10MG) SC SCH (09:42)
[2023-04-16] MEDS ORDERED: MOM 30ML SUSPENSION UDC PO PRN (10:30)
[2023-04-16 13:13] VITALS: BP 123/74; TEMP 97.9; O2SAT 95
[2023-04-16] MEDS: SENOKOT S TAB PO SCH (20:42)
[2023-04-16 21:15] VITALS: BP 115/72; TEMP 97.9; O2SAT 97
[2023-04-17] MEDS: KETOROLAC 30 MG/ML 1ML VIAL IV SCH ×2 (00:12→08:40)
[2023-04-17 05:20] VITALS: BP 106/64; TEMP 97.3; O2SAT 95
[2023-04-17 06:53] LABS: BASO # 0.1 10^3/uL (0.0-0.2); BASO % 0.9 % (0.0-1.0); EOS # 0.2 10^3/uL (0.0-0.5); EOS % 2.9 % (0.0-3.0); HEMATOCRIT 38.8 % (42.0-52.0); LYMPH # 1.8 10^3/uL (1.5-5.0); LYMPH % 32.9 % (24.0-44.0); MEAN CORPUSCULAR HEMOGLOBIN 29.7 pg (27.0-33.0); MEAN CORPUSCULAR HGB CONC 33.5 g/dl (32.0-36.5); MEAN CORPUSCULAR VOLUME 88.8 fl (80.0-96.0); MONO # 0.9 10^3/uL (0.0-0.8); MONO % 15.7 % (2.0-8.0); NEUTROPHILS # 2.6 10^3/uL (1.5-8.5); NEUTROPHILS % 47.1 % (36.0-66.0); PLATELET COUNT, AUTOMATED 195 10^3/uL (150-450); RED BLOOD COUNT 4.37 10^6/uL (4.30-6.10); WHITE BLOOD COUNT 5.5 10^3/uL (4.0-10.0)
[2023-04-17 07:10] LABS: BLOOD UREA NITROGEN 13 MG/DL (9-23); CALCIUM LEVEL 8.3 MG/DL (8.5-10.1); CARBON DIOXIDE LEVEL 27 MMOL/L (20-31); CHLORIDE LEVEL 109 MMOL/L (98-107); CREATININE FOR GFR 0.77 MG/DL (0.70-1.30); GLOMERULAR FILTRATION RATE > 60.0 (>56); GLUCOSE, FASTING 98 MG/DL (60-100); POTASSIUM SERUM 3.8 MMOL/L (3.5-5.1); SODIUM LEVEL 142 MMOL/L (136-145)
[2023-04-17] MEDS ORDERED: MIRALAX *UNIT DOSE* 17GM PACKET PO PRN (08:25)
[2023-04-17] MEDS: CLOPIDOGREL 75 MG TAB PO SCH (08:34)
[2023-04-17] MEDS: ASPIRIN 81MG CHEW TABLET PO SCH (08:35)
[2023-04-17] MEDS: levETIRAcetam 250MG TABLET (KEPPRA) PO SCH (08:35)
[2023-04-17] MEDS: SENOKOT S TAB PO SCH (08:36)
[2023-04-17] MEDS: OMEPRAZOLE 20MG CAP PO SCH (08:36)
[2023-04-17] MEDS: rOPINIRole 0.25 MG TAB(REQUIP) PO SCH (08:37)
[2023-04-17] MEDS: VITAMIN D 1,000 INTERNATIONAL UNITS TABLET PO SCH (08:37)
[2023-04-17] MEDS: ROSUVASTATIN 10 MG TAB (CRESTOR) PO SCH (08:37)
[2023-04-17] MEDS: MAGNESIUM OXIDE 400MG TAB (MAG-OX) PO SCH (08:38)
[2023-04-17] MEDS: QUEtiapine FUMARATE 100 MG TAB PO SCH (08:39)
[2023-04-17] MEDS: BACLOFEN 10 MG TAB PO SCH (08:39)
[2023-04-17] MEDS: MULTIVITAMINS/MINERALS THERAP 1 TAB PO SCH (08:39)
[2023-04-17] MEDS: ENOXAPARIN 40MG/0.4ML SYRINGE (J1650 PER 10MG) SC SCH (08:40)
[2023-04-17] MEDS: oxyCODONE 5MG TAB PO SCH (08:41)
[2023-04-17 08:45] VITALS: BP 132/76
[2023-04-17] MEDS: atenoloL 25 MG TAB PO SCH (08:45)
[2023-04-17] MEDS ORDERED: tiZANidine 4 MG TAB PO SCH (09:00)
[2023-04-17] MEDS ORDERED: OXYC-517 PO (11:26)
[2023-04-17] MEDS ORDERED: TIZA10TA PO (11:26)
[2023-04-17] MEDS ORDERED: SENN-52 PO (11:26)
== END 2023-04-17 13:00 | DRG 536 ==
LOC: M ED 22:51 → EDBD 22:51 → M ED INP 04-15 11:09 → M MS5PR 04-15 15:00
PROVIDERS: ADMIT Internal Medicine Nephrology; ATTEND Internal Medicine Nephrology
DX: S72.145A Nondisplaced intertrochanteric fracture of left femur, initial encounter for closed fracture (principal); I69.354 Hemiplegia and hemiparesis following cerebral infarction affecting left non-dominant side; M97.8XXA Periprosthetic fracture around other internal prosthetic joint, initial encounter; F31.9 Bipolar disorder, unspecified; G40.909 Epilepsy, unspecified, not intractable, without status epilepticus; I10 Essential (primary) hypertension; G25.81 Restless legs syndrome; E78.5 Hyperlipidemia, unspecified; K21.9 Gastro-esophageal reflux disease without esophagitis; M21.372 Foot drop, left foot; Z87.820 Personal history of traumatic brain injury; Z96.642 Presence of left artificial hip joint; E55.9 Vitamin D deficiency, unspecified; Z88.5 Allergy status to narcotic agent; Z88.6 Allergy status to analgesic agent; Z88.8 Allergy status to other drugs, medicaments and biological substances; Z79.82 Long term (current) use of aspirin; Z79.899 Other long term (current) drug therapy; E66.9 Obesity, unspecified; W18.30XA Fall on same level, unspecified, initial encounter; Y92.009 Unspecified place in unspecified non-institutional (private) residence as the place of occurrence of the external cause

== ENCOUNTER → 2023-04-18 | Outpatient (REF) | payer OTHER, MEDICARE ==
[~2023-04-18] MED LIST changes: +ACYC1TAB PO; +CALC1TAB49 PO; +LEVE250T5 PO; +LORA-622 PO; +MULT-90 PO; +OMEP40CA5 PO; +OXYC-517 PO; +POTA10808 PO; +QUET100T2 PO; +ROSU40TA4 PO; +SENN-52 PO; +TIZA10TA PO; +VITA1CHW8 PO
[2023-04-18 11:57] LABS: HEMOGLOBIN 13.7 g/dl (13.5-17.5); MEAN CORPUSCULAR HEMOGLOBIN 30.6 pg (27.0-33.0); MEAN CORPUSCULAR HGB CONC 34.3 g/dl (32.0-36.5); MEAN CORPUSCULAR VOLUME 89.5 fl (80.0-96.0); PLATELET COUNT, AUTOMATED 218 10^3/uL (150-450); RED BLOOD COUNT 4.47 10^6/uL (4.30-6.10); WHITE BLOOD COUNT 8.4 10^3/uL (4.0-10.0)
[2023-04-18 12:30] LABS: ALBUMIN 3.2 G/DL (3.2-5.2); ALKALINE PHOSPHATASE 86 U/L (46-116); ALT/SGPT 16 U/L (7.0-40); AST/SGOT 19 U/L (<34); BILIRUBIN,TOTAL 1.3 MG/DL (0.3-1.2); BLOOD UREA NITROGEN 11 MG/DL (9-23); CALCIUM LEVEL 8.1 MG/DL (8.5-10.1); CARBON DIOXIDE LEVEL 28 MMOL/L (20-31); CHLORIDE LEVEL 111 MMOL/L (98-107); CREATININE FOR GFR 0.66 MG/DL (0.70-1.30); GLOMERULAR FILTRATION RATE > 60.0 (>56); GLUCOSE, FASTING 105 MG/DL (60-100); POTASSIUM SERUM 4.1 MMOL/L (3.5-5.1); SODIUM LEVEL 143 MMOL/L (136-145)
== END ==
LOC: SKLAB7 07:46
PROVIDERS: ATTEND Internal Medicine
DX: I10 Essential (primary) hypertension (principal)

== ENCOUNTER → 2023-05-02 | Outpatient (REF) ==
[2023-05-02 09:17] LABS: HEMATOCRIT 42.4 % (42.0-52.0); HEMOGLOBIN 14.3 g/dl (13.5-17.5); MEAN CORPUSCULAR HEMOGLOBIN 29.7 pg (27.0-33.0); MEAN CORPUSCULAR HGB CONC 33.7 g/dl (32.0-36.5); MEAN CORPUSCULAR VOLUME 88.1 fl (80.0-96.0); PLATELET COUNT, AUTOMATED 223 10^3/uL (150-450); RED BLOOD COUNT 4.81 10^6/uL (4.30-6.10); WHITE BLOOD COUNT 5.8 10^3/uL (4.0-10.0)
[2023-05-02 09:32] LABS: ALBUMIN 3.3 G/DL (3.2-5.2); ALKALINE PHOSPHATASE 90 U/L (46-116); ALT/SGPT 23 U/L (7.0-40); AST/SGOT 22 U/L (<34); BILIRUBIN,TOTAL 0.8 MG/DL (0.3-1.2); BLOOD UREA NITROGEN 10 MG/DL (9-23); CALCIUM LEVEL 8.8 MG/DL (8.5-10.1); CARBON DIOXIDE LEVEL 27 MMOL/L (20-31); CHLORIDE LEVEL 109 MMOL/L (98-107); CREATININE FOR GFR 0.66 MG/DL (0.70-1.30); GLOMERULAR FILTRATION RATE > 60.0 (>56); GLUCOSE, FASTING 92 MG/DL (60-100); POTASSIUM SERUM 4.1 MMOL/L (3.5-5.1); SODIUM LEVEL 142 MMOL/L (136-145); TOTAL PROTEIN 6.3 G/DL (5.7-8.2)
== END ==
LOC: SKLAB3 07:36
PROVIDERS: ATTEND Internal Medicine
DX: I10 Essential (primary) hypertension (principal)

== ENCOUNTER → 2023-05-14 | Outpatient (REF) ==
[2023-05-14 13:13] LABS: HEMATOCRIT 44.7 % (42.0-52.0); HEMOGLOBIN 15.2 g/dl (13.5-17.5); MEAN CORPUSCULAR VOLUME 88.3 fl (80.0-96.0); PLATELET COUNT, AUTOMATED 192 10^3/uL (150-450); RED BLOOD COUNT 5.06 10^6/uL (4.30-6.10); WHITE BLOOD COUNT 5.6 10^3/uL (4.0-10.0)
[2023-05-14 13:38] LABS: ALBUMIN 3.5 G/DL (3.2-5.2); ALKALINE PHOSPHATASE 86 U/L (46-116); ALT/SGPT 16 U/L (7.0-40); AST/SGOT 13 U/L (<34); BILIRUBIN,TOTAL 1.5 MG/DL (0.3-1.2); BLOOD UREA NITROGEN 14 MG/DL (9-23); CARBON DIOXIDE LEVEL 25 MMOL/L (20-31); CHLORIDE LEVEL 109 MMOL/L (98-107); CREATININE FOR GFR 0.64 MG/DL (0.70-1.30); GLOMERULAR FILTRATION RATE > 60.0 (>56); GLUCOSE, FASTING 112 MG/DL (60-100); POTASSIUM SERUM 3.8 MMOL/L (3.5-5.1); SODIUM LEVEL 139 MMOL/L (136-145); TOTAL PROTEIN 6.9 G/DL (5.7-8.2)
== END ==
LOC: SKLAB3 11:24
PROVIDERS: ATTEND Internal Medicine
DX: I10 Essential (primary) hypertension (principal)

== ENCOUNTER → 2023-06-11 | Outpatient (REF) | payer SELFPAY ==
[2023-06-11 09:40] LABS: HEMATOCRIT 44.6 % (42.0-52.0); HEMOGLOBIN 14.7 g/dl (13.5-17.5); MEAN CORPUSCULAR HEMOGLOBIN 29.1 pg (27.0-33.0); MEAN CORPUSCULAR VOLUME 88.1 fl (80.0-96.0); PLATELET COUNT, AUTOMATED 172 10^3/uL (150-450); RED BLOOD COUNT 5.06 10^6/uL (4.30-6.10); WHITE BLOOD COUNT 5.7 10^3/uL (4.0-10.0)
[2023-06-11 10:09] LABS: ALBUMIN 3.4 G/DL (3.2-5.2); ALKALINE PHOSPHATASE 85 U/L (46-116); ALT/SGPT 17 U/L (7.0-40); AST/SGOT 15 U/L (<34); BILIRUBIN,TOTAL 0.8 MG/DL (0.3-1.2); BLOOD UREA NITROGEN 14 MG/DL (9-23); CALCIUM LEVEL 8.8 MG/DL (8.5-10.1); CARBON DIOXIDE LEVEL 26 MMOL/L (20-31); CHLORIDE LEVEL 108 MMOL/L (98-107); GLOMERULAR FILTRATION RATE > 60.0 (>56); GLUCOSE, FASTING 108 MG/DL (60-100); SODIUM LEVEL 140 MMOL/L (136-145)
== END ==
LOC: SKLAB3 10:32
PROVIDERS: ATTEND Nurse Practitioner Family
DX: I10 Essential (primary) hypertension (principal)

== ENCOUNTER → 2023-07-17 | Outpatient (REF) | payer OTHER ==
[~2023-07-17] MED LIST changes: -ROSU40TA4 PO; +ROSU40TA63 PO
[2023-07-17 09:29] LABS: HEMATOCRIT 43.7 % (42.0-52.0); HEMOGLOBIN 14.3 g/dl (13.5-17.5); MEAN CORPUSCULAR HEMOGLOBIN 28.1 pg (27.0-33.0); MEAN CORPUSCULAR HGB CONC 32.7 g/dl (32.0-36.5); PLATELET COUNT, AUTOMATED 172 10^3/uL (150-450); RED BLOOD COUNT 5.08 10^6/uL (4.30-6.10); WHITE BLOOD COUNT 4.4 10^3/uL (4.0-10.0)
[2023-07-17 10:20] LABS: ALBUMIN 3.4 G/DL (3.2-5.2); ALKALINE PHOSPHATASE 75 U/L (46-116); ALT/SGPT 20 U/L (7.0-40); AST/SGOT 18 U/L (<34); BILIRUBIN,TOTAL 0.7 MG/DL (0.3-1.2); BLOOD UREA NITROGEN 10 MG/DL (9-23); CALCIUM LEVEL 8.4 MG/DL (8.5-10.1); CARBON DIOXIDE LEVEL 27 MMOL/L (20-31); CHLORIDE LEVEL 110 MMOL/L (98-107); CREATININE FOR GFR 0.66 MG/DL (0.70-1.30); GLOMERULAR FILTRATION RATE > 60.0 (>56); GLUCOSE, FASTING 106 MG/DL (60-100); POTASSIUM SERUM 4.2 MMOL/L (3.5-5.1); SODIUM LEVEL 144 MMOL/L (136-145)
== END ==
LOC: SKLAB3 07:00
PROVIDERS: ATTEND Nurse Practitioner Family
DX: I10 Essential (primary) hypertension (principal)